=== PATIENT | female | born 1940 | race Caucasian/White ===

== ENCOUNTER 2016-12-02 08:52 | Inpatient (IN) | payer OTHER, MEDICARE ==
[2016-12-02] VITALS (12 sets, daily range): BP systolic 124–165; BP diastolic 59–72; PULSE 66–94; RESP 18–27; TEMP 98.4–98.7; O2SAT 93–97
[~2016-12-02] VITALS: Ht 152.4 cm; Wt 71.1 kg
[~2016-12-02 08:52] MED LIST: BIOT5000 PO; CITRTAB16 PO; EYECAP PO; FERR140T OR; FISH1000 PO; HYZA100T6 PO; LEVA750T9 PO; LUTE20CA PO; POTA-243 PO; TAB-TAB PO; VITA20003 OR
[2016-12-02] MEDS ORDERED: GADODIAMIDE PF 287 MG/ML 5 ML VIAL (for RAD MRI) IV PUSH ONE (08:53)
--- NOTE | 2016-12-02 09:02 | PD ---
HPI Chief Complaint: Neuro Symptoms/ Deficits Time Seen by Provider: 08:55 Travel History International Travel<30 days: No Contact w/Intl Traveler<30days: No Traveled to known affect area: No History of Present Illness HPI Patient is a 76-year-old female presents emergency Department with headache and difficulty finding words since yesterday. She is accompanied by her daughter and . Patient is having trouble finding small words like "baby" in baby aspirin and "worse." Daughter states that she usually suffers from migraines but she was able to tell her that this was "something worse". No focalized weakness. No fevers no abdominal pain. She states symptoms are getting worse this morning. She is also slow to respond to questions which daughter states is something new for her. Almost as if she was hard of hearing but she has not had any hard of hearing issues in the past. PFSH Past Medical History Arthritis: Yes Cancer: No Cardiovascular Problems: No Diabetes: No Diminished Hearing: No Endocrine: No Genitourinary: No Hepatitis: No Hiatal Hernia: No Hypertension: Yes Immune Disorder: No Musculoskeletal: Yes (KNEES AND BACK ARTHRITIS) Neurologic: No Psychiatric: No Reproductive: No Respiratory: No Thyroid Disease: No Menopausal: Yes Past Surgical History Abdominal Surgery: No AICD: No Body Medical Devices: NA Cardiac Surgery: No Ear Surgery: No Endocrine Surgery: No Eye Surgery: No Genitourinary Surgery: No Gynecologic Surgery: Yes (ECTOPIC ) Joint Replacement: Yes (R KNEE) Oral Surgery: No Pacemaker: No Thoracic Surgery: No Other Surgery: Yes Social History Alcohol Use: No Tobacco Use: No (quit 25 years ago) Substance Use: No Allergies-Medications (Allergen,Severity, Reaction): Coded Allergies: No Known Allergies (Unverified , 12/02/16) Reported Meds & Prescriptions Reported Meds & Active Scripts Active Reported Potassium Chloride ER (Potassium Chloride) 10 Meq Cap 10 Meq PO DAILY Losartan-Hydrochlorothiazide 100-25 Mg Tab 1 Tab PO DAILY Review of Systems Except as stated in HPI: all other systems reviewed are Neg Physical Exam Narrative GENERAL: Well-developed well-nourished no obvious distress SKIN: Focused skin assessment warm/dry. HEAD: Atraumatic. Normocephalic. EYES: Pupils equal and round. No scleral icterus. No injection or drainage. ENT: No nasal bleeding or discharge. Mucous membranes pink and moist. NECK: Trachea midline. No JVD. CARDIOVASCULAR: Regular rate and rhythm. No murmur appreciated. RESPIRATORY: No accessory muscle use. Clear to auscultation. Breath sounds equal bilaterally. GASTROINTESTINAL: Abdomen soft, non-tender, nondistended. Hepatic and splenic margins not palpable. MUSCULOSKELETAL: No obvious deformities. No clubbing. No cyanosis. No edema. NEUROLOGICAL: Awake and alert and oriented, cranial nerves II through XII are grossly intact and nonfocal, no obvious visual field deficits by confrontation. Patient has 5 out of 5 strength in all 4 extremities, cerebellar testing negative. The patient's speech she is having difficulty finding small words but is able to hear it on a conversation the point where he can understand what she is trying to communicate. She is slow to respond to my questions however which daughter says is new for her. PSYCHIATRIC: Appropriate mood and affect; insight and judgment normal. Data Data Last Documented VS Vital Signs Date Time Temp Pulse Resp B/P (MAP) Pulse Ox O2 Delivery O2 Flow Rate FiO2 12/02/16 11:49 70 18 128/72 (90) 96 12/02/16 10:53 Room Air Orders Orders Ct Brain W/O Iv Contrast(Rout) (12/02/16 ) Electrocardiogram (12/02/16 09:01) Ckmb (Isoenzyme) Profile (12/02/16 09:01) Complete Blood Count With Diff (12/02/16 09:01) Comprehensive Metabolic Panel (12/02/16 09:01) Magnesium (Mg) (12/02/16 09:01) Prothrombin Time / Inr (Pt) (12/02/16 09:01) Act Partial Throm Time (Ptt) (12/02/16 09:01) Troponin I (12/02/16 09:01) Chest, Single Ap (12/02/16 09:01) Ecg Monitoring (12/02/16 09:01) Iv Access Insert/Monitor (12/02/16 09:01) Oximetry (12/02/16 09:01) Oxygen Administration (12/02/16 09:01) Sodium Chloride 0.9% Flush (Ns Flush) (12/02/16 09:15) Dexamethasone Inj (Decadron Inj) (12/02/16 09:45) Elevate Head Of Bed (12/02/16 09:48) Mri Brain W&W/O Contrast (12/02/16 ) CKMB (12/02/16 09:05) CKMB% (12/02/16 09:05) Elevate Head Of Bed (12/02/16 10:17) Osmolality,Serum (12/02/16 10:20) Osmolality, Urine (12/02/16 10:20) Sodium, Random Urine (12/02/16 10:20) Potassium, Random Urine (K) (12/02/16 10:20) Urinalysis - C+S If Indicated (12/02/16 10:20) Gadodiamide Pf Inj (Omniscan Pf Inj) (12/02/16 08:53) Admit Order (Ed Use Only) (12/02/16 ) Labs Laboratory Tests Test 12/02/16 09:05 12/02/16 10:35 White Blood Count 7.6 TH/MM3 Red Blood Count 4.63 MIL/MM3 Hemoglobin 12.9 GM/DL Hematocrit 38.9 % Mean Corpuscular Volume 84.1 FL Mean Corpuscular Hemoglobin 27.9 PG Mean Corpuscular Hemoglobin Concent 33.2 % Red Cell Distribution Width 12.6 % Platelet Count 350 TH/MM3 Mean Platelet Volume 7.2 FL Neutrophils (%) (Auto) 71.9 % Lymphocytes (%) (Auto) 20.8 % Monocytes (%) (Auto) 5.2 % Eosinophils (%) (Auto) 0.6 % Basophils (%) (Auto) 1.5 % Neutrophils # (Auto) 5.5 TH/MM3 Lymphocytes # (Auto) 1.6 TH/MM3 Monocytes # (Auto) 0.4 TH/MM3 Eosinophils # (Auto) 0.0 TH/MM3 Basophils # (Auto) 0.1 TH/MM3 CBC Comment AUTO DIFF Differential Comment AUTO DIFF CONFIRMED Platelet Estimate NORMAL Platelet Morphology Comment NORMAL Prothrombin Time 10.6 SEC Prothromb Time International Ratio 1.0 RATIO Activated Partial Thromboplast Time 28.6 SEC Blood Urea Nitrogen 10 MG/DL Creatinine 0.98 MG/DL Random Glucose 113 MG/DL Total Protein 7.9 GM/DL Albumin 3.7 GM/DL Calcium Level 9.1 MG/DL Magnesium Level 1.7 MG/DL Alkaline Phosphatase 102 U/L Aspartate Amino Transf (AST/SGOT) 26 U/L Alanine Aminotransferase (ALT/SGPT) 27 U/L Total Bilirubin 1.2 MG/DL Sodium Level 122 MEQ/L Potassium Level 3.7 MEQ/L Chloride Level 87 MEQ/L Carbon Dioxide Level 23.5 MEQ/L Anion Gap 12 MEQ/L Estimat Glomerular Filtration Rate 55 ML/MIN Serum Osmolality 251 MOSM/KG Total Creatine Kinase 222 U/L Creatine Kinase MB 2.6 NG/ML Creatine Kinase MB % 1.2 % Troponin I LESS THAN 0.02 NG/ML Urine Color YELLOW Urine Turbidity CLEAR Urine pH 6.0 Urine Specific Gilliam 1.015 Urine Protein NEG mg/dL Urine Glucose (UA) NEG mg/dL Urine Ketones 15 mg/dL Urine Occult Blood SMALL Urine Nitrite NEG Urine Bilirubin NEG Urine Leukocyte Esterase NEG Urine RBC 0-3 /hpf Urine WBC 0-2 /hpf Urine Squamous Epithelial Cells 0-5 /hpf Urine Bacteria OCC /hpf Urine Mucus FEW /lpf Urine Oval Fat Bodies Microscopic Urinalysis Comment CULT NOT INDICATED Urine Osmolality 472 MOSM/KG Urine Random Sodium 68 MEQ/L Urine Random Potassium 54 MEQ/L [facility] Medical Decision Making Medical Screen Exam Complete: Yes Emergency Medical Condition: Yes Interpretation(s) EKG shows normal sinus rhythm with a normal axis and normal R-wave progression. TX interval at the upper limit of normal 205, otherwise intervals within normal limits. No concerning ST segment changes. This is a borderline EKG. Differential Diagnosis intracranial hemorrhage, cerebral edema, brain mass, ischemic stroke. Narrative Course Patient arrives to the emergency department with symptoms since last night. There is no indication for stroke alert and certainly will not be an indication for TPA. Working closely with Dr. 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 This is does have some cerebral edema with a [id number] shift of approximately 6 mm. He recommends an MRI. He was at this point the patient was discussed with Dr. Queta Ovalle through OR nurse and he agrees that MRI is of utmost importance. Patient was given Decadron 10 mg IV. Her labs reviewed and was notable for a sodium of 122, creatinine is 0.98, troponin negative, glucose 113. CBC shows normal platelet count, normal white blood cells. Given her hyponatremia the patient had urine electrolytes sent as well as serum and urine osmolality. These have not resulted as of yet. Patient remained nothing by mouth while in the emergency department. Patient underwent MRI scanning which appears to confirm CAT scan imaging. Last 24 hours Impressions Chest X-Ray 12/02/16 0901 Signed Impressions: Service Date/Time: Friday, December 02, 2016 09:15 - CONCLUSION: No acute disease. MD MICHAELLE LinaresR Head CT 12/02/16 0000 Signed Impressions: Service Date/Time: Friday, December 02, 2016 09:18 - CONCLUSION: Abnormal left hemisphere as described above. MRI is suggested. MD ODILIA Linares Brain MRI 12/02/16 0000 Signed Impressions: Service Date/Time: Friday, December 02, 2016 11:22 - CONCLUSION: Abnormal left ventricle with subtle generalized edema and prominent occipital horn. The occipital lobe is nonexistent on the left. This ventricle may be encysted or trapped. The signal characteristics of the CSF or identical across the ventricular system. I don't see anything else to account for the subtle edema in the left hemisphere. Mendez Dickerson MD FACR At this point without saying a mass causing the edema the patient was rediscussed with Dr. Jean-Paul Ovalle and he agrees the patient should be transferred to the [facility] hospital for consideration of surgical options. This was discussed with the patient and family and they are agreeable. At the discussion point the patient is having significant continuation of her expressive and receptive aphasia. It perhaps is subtly worse. Patient was discussed briefly with Dr. Reyes regarding the patient's sodium and at this point will hold off pending the results of her electrolyte results and monitoring of her neurologic status. Ultimately the patient was discussed with Dr. parmar the money for admission and he is agreeable. Patient will be transferred to [facility]. At this point we'll transfer her emergently for consideration of surgical options. Critical Care Narrative Aggregate critical care time was 35 minutes. Time to perform other separately billable procedures was not included in the critical care time. My time did not include minutes spent treating any other patients simultaneously or on activities that did not directly contribute to the patient's treatment. The services I provided to this patient were to treat and/or prevent clinically significant deterioration that could result in: , Disability, organ failure. I provided critical care services requiring my management, as noted below: Chart data review, documentation time, medication orders and management, vital sign assessments/reviewing monitor data, ordering and reviewing lab tests, ordering and interpreting/reviewing x-rays and diagnostic studies, care of the patient and discussion of the patient with the admitting physicians. Diagnosis Primary Impression: Cerebral edema Additional Impressions: Brain cyst Hyponatremia Expressive aphasia Receptive aphasia Admitting Information Admitting Physician Requests: Admit Condition: Preston Pedroza MD Dec 02, 2016 09:02
[2016-12-02] MEDS ORDERED: LOSA100T2 PO (09:06)
[2016-12-02] MEDS ORDERED: POTA10CA PO (09:06)
[2016-12-02] MEDS ORDERED: SODIUM CHLORIDE 0.9% FLUSH 10 ML FLUSH IVF PRN (09:15)
[2016-12-02 09:20] LABS: AUTOMATED NEUTROPHIL # 5.5 TH/MM3 (1.8-7.7); BASOPHIL # 0.1 TH/MM3 (0-0.2); BASOPHIL % 1.5 % (0.0-2.0); EOSINOPHIL % 0.6 % (0.0-4.0); HEMATOCRIT 38.9 % (35.0-46.0); LYMPH % 20.8 % (9.0-44.0); LYMPHOCYTE # 1.6 TH/MM3 (1.0-4.8); MEAN CELL VOLUME 84.1 FL (80.0-100.0); MEAN CORPUSCULAR HEMOGLOBIN 27.9 PG (27.0-34.0); MEAN CORPUSCULAR HGB CONC 33.2 % (32.0-36.0); MONO % 5.2 % (0.0-8.0); NEUT % 71.9 % (16.0-70.0); PLATELET COUNT 350 TH/MM3 (150-450); RED BLOOD COUNT 4.63 MIL/MM3 (4.00-5.30); RED CELL DISTRIBUTION WIDTH 12.6 % (11.6-17.2); WHITE BLOOD COUNT 7.6 TH/MM3 (4.0-11.0)
[2016-12-02 09:25] LABS: HEMO FLAGS AUTO DIFF
--- NOTE | 2016-12-02 09:37 | RADRPT ---
EXAM DATE/TIME: 12/02/2016 09:18 [facility] COMPARISON: No previous studies available for comparison. INDICATIONS : Frontal headache with speaking difficulty since yesterday. RADIATION DOSE: 62.00 CTDIvol (mGy) MEDICAL HISTORY : Hypertension. SURGICAL HISTORY : None. ENCOUNTER: Initial ACUITY: 2 days PAIN SCALE: 4/10 LOCATION: frontal TECHNIQUE: Multiple contiguous axial images were obtained of the head. Using automated exposure control and adj ustment of the mA and/or kV according to patient size, radiation dose was kept as low as reasonably a chievable to obtain optimal diagnostic quality images. DICOM format image data is available electro nically for review and comparison. FINDINGS: The study is abnormal. There is large dilated occipital horn on the left. This may be trapped becau se there is minimal mass effect in the left hemisphere. The right hemisphere is unremarkable. The p osterior fossa is normal. There is no parenchymal hemorrhage CONCLUSION: Abnormal left hemisphere as described above. MRI is suggested. Mendez Dickerson MD FACR on December 02, 2016 at 9:33 Board Certified Radiologist. This report was verified electronically.
[2016-12-02 09:40] LABS: APTT (PATIENT) 28.6 SEC (24.3-30.1); PROTHROMBIN TIME - PATIENT 10.6 SEC (9.8-11.6)
--- NOTE | 2016-12-02 09:40 | RADRPT ---
EXAM DATE/TIME: 12/02/2016 09:15 [facility] COMPARISON: CHEST SINGLE AP, December 07, 2013, 23:16. INDICATIONS : Chest Pain MEDICAL HISTORY : Hypertension. SURGICAL HISTORY : None. ENCOUNTER: Initial ACUITY: 2 days PAIN SCORE: 0/10 LOCATION: Bilateral chest FINDINGS: A single view of the chest demonstrates the lungs to be symmetrically aerated without evidence of mas s, infiltrate or effusion. The cardiomediastinal contours are unremarkable. Osseous structures are intact. CONCLUSION: No acute disease. Mendez Dickerson MD FACR on December 02, 2016 at 9:37 Board Certified Radiologist. This report was verified electronically.
[2016-12-02] MEDS ORDERED: DEXAMETHASONE SOD PHOS 20 MG/5 ML VIAL IV PUSH ONE (09:45)
[2016-12-02 09:55] LABS: BICARBONATE 23.5 MEQ/L (21.0-32.0); MAGNESIUM 1.7 MG/DL (1.5-2.5)
[2016-12-02 09:58] LABS: ALT (GPT) 27 U/L (10-53); AST (GOT) 26 U/L (15-37); GLOMERULAR FILTRATION RATE 55 ML/MIN (>89)
[2016-12-02 09:59] LABS: TOTAL BILIRUBIN ADULT 1.2 MG/DL (0.2-1.0)
[2016-12-02 10:00] LABS: PLATELET ESTIMATE SMEAR NORMAL (NORMAL); PLATELET MORPHOLOGY NORMAL (NORMAL); SCAN/DIFF AUTO DIFF CONFIRMED
[2016-12-02 10:14] LABS: ALKALINE PHOSPHATASE 102 U/L (45-117); ANION GAP 12 MEQ/L (5-15); BLOOD UREA NITROGEN 10 MG/DL (7-18); CHLORIDE 87 MEQ/L (98-107); CREATINE KINASE 222 U/L (26-192); POTASSIUM 3.7 MEQ/L (3.5-5.1)
[2016-12-02 10:19] LABS: SODIUM (NA) 122 MEQ/L (136-145)
[2016-12-02 10:41] LABS: CKMB 2.6 NG/ML (0.5-3.6)
[2016-12-02 10:52] LABS: BLOOD, URINE SMALL (NEG); GLUCOSE,URINE NEG (NEG); KETONE, URINE 15 mg/dL (NEG); NITRITE,URINE NEG (NEG)
[2016-12-02 11:03] LABS: BACTERIA, URINE OCC /hpf; COMMENT (UR) CULT NOT INDICATED; CULTURE IF INDICATED CULT NOT INDICATED; MUCUS URINE FEW /lpf (OCC); RBC, URINE 0-3 /hpf (0-3); SQUAMOUS EPITHELIAL CELL URINE 0-5 /hpf (0-5); URINE COLOR YELLOW (YELLW/STRAW); WBC, URINE 0-2 /hpf (0-5)
--- NOTE | 2016-12-02 12:28 | RADRPT ---
EXAM DATE/TIME: 12/02/2016 11:22 [facility] COMPARISON: No previous studies available for comparison. INDICATIONS : Tumor. Frontal headache with speaking difficulty since yesterday. CONTRAST: 13 cc Omniscan (gadodiamide) IV MEDICAL HISTORY : None. SURGICAL HISTORY : Knee sx. ENCOUNTER: Initial ACUITY: 2 day PAIN SCORE: 3/10 LOCATION: Bilateral cranial TECHNIQUE: Multiplanar, multisequence MRI of the brain was performed both prior to and following the administrat ion of paramagnetic contrast. FINDINGS: There is mild generalized edema in the left hemisphere. The occipital lobe on the left is all be non existent. Scattered white matter changes are noted There is minimal left to right shift on the older of the 6-7 mm. There is no restricted diffusion. There is no parenchymal hemorrhage. The right hemisphere is unremarkable There is no abnormal contrast enhancement. The orbits and sinuses are unremarkable. CONCLUSION: Abnormal left ventricle with subtle generalized edema and prominent occipital horn. The occipital lo be is nonexistent on the left. This ventricle may be encysted or trapped. The signal characteristic s of the CSF or identical across the ventricular system. I don't see anything else to account for the subtle edema in the left hemisphere. Mendez Dickerson MD FACR on December 02, 2016 at 12:19 Board Certified Radiologist. This report was verified electronically.
[2016-12-02] MEDS ORDERED: ACETAMINOPHEN 325 MG TAB PO PRN ×2 (14:30→16:45)
[2016-12-02] MEDS ORDERED: CHLORHEXIDINE GLUCONATE 2 % 1 PACK (2 CLOTHS) TOP PRN (14:30)
[2016-12-02] MEDS ORDERED: ONDANSETRON HCL 4 MG/2 ML VIAL IV PRN (14:30)
[2016-12-02] MEDS ORDERED: SODIUM CHLORIDE 0.9% FLUSH 10 ML FLUSH IV FLUSH PRN ×2 (14:30→16:45)
[2016-12-02] MEDS ORDERED: LACTULOSE SYRUP 20 GM/30 ML CUP PO PRN (14:30)
[2016-12-02] MEDS ORDERED: MORPHINE SULFATE 4 MG/ML INJ IV PRN (14:30)
[2016-12-02] MEDS ORDERED: BISACODYL 10 MG SUPP RECTAL PRN (14:30)
[2016-12-02] MEDS ORDERED: MISCELLANEOUS NURSING INFORMATION XX SCH (14:30)
[2016-12-02] MEDS ORDERED: RESP: ALBUTEROL 2.5 MG/IPRATROPIUM 0.5 MG NEB (PRN) INH (14:30)
[2016-12-02] MEDS ORDERED: MAGNESIUM HYDROXIDE SUSP 30 ML CUP PO PRN (14:30)
[2016-12-02] MEDS ORDERED: SENNOSIDES 8.6 MG TAB PO PRN (14:30)
--- NOTE | 2016-12-02 14:32 | EKG ---
Date Performed: 12/02/2016 Time Performed: 09:08:04 PTAGE: 76 years EKG: Sinus rhythm NORMAL ECG Compared to prior tracing no significant change PREVIOUS TRACING : 12/07/2013 23.10 DOCTOR: Grzegorz Akbar Interpretating Date/Time 12/02/2016 14:27:07
[2016-12-02] MEDS: DEXAMETHASONE SOD PHOS 4 MG/ML VIAL IV PUSH SCH ×2 (15:37→21:01)
[2016-12-02] MEDS: NS + KCL 20 MEQ INJ 1,000 ML IV SCH (15:37)
--- NOTE | 2016-12-02 15:41 | HHI.HP ---
HPI Service Critical Care Medicine Primary Care Physician Unknown Admission Diagnosis Cerebral Edema, Brain Cyst. Diagnosis: Travel History International Travel<30 Days: No Contact w/Intl Traveler <30 Da: No Traveled to Known Affected Are: No History of Present Illness History of Present Illness HPI 76-year-old female who was brought to the ER with a history of headache and difficulty with finding words with started on 12/01 that is yesterday. On evaluation in the ER she was noted to have word finding difficulty. She underwent a head CT which revealed enlarged left occipital horn of lateral ventricle. Neurosurgery was consulted by Dr. Daniels and Dr. Ovalle requested patient be transferred to [facility]. Patient was given Decadron 10 mg IV at [place] [facility]. She also noted to be hyponatremic with sodium 122. I evaluated the patient immediately on her arrival to [facility]. At that time she was laying in bed in no acute distress. She continued to have difficulties with her speech and appeared to have expressive aphasia. She did say that she had a headache previously. Denied any nausea vomiting or visual disturbance. Denied any fever or chills. Denied any shortness of breath or abdominal pain. History PFSH Past Medical History Arthritis: Yes Cancer: No Cardiovascular Problems: No Diabetes: No Diminished Hearing: No Endocrine: No Genitourinary: No Hepatitis: No Hiatal Hernia: No Hypertension: Yes Immune Disorder: No Musculoskeletal: Yes (KNEES AND BACK ARTHRITIS) Neurologic: No Psychiatric: No Reproductive: No Respiratory: No Thyroid Disease: No Menopausal: Yes Past Surgical History Abdominal Surgery: No AICD: No Body Medical Devices: NA Cardiac Surgery: No Ear Surgery: No Endocrine Surgery: No Eye Surgery: No Genitourinary Surgery: No Gynecologic Surgery: Yes (ECTOPIC ) Joint Replacement: Yes (R KNEE) Oral Surgery: No Pacemaker: No Thoracic Surgery: No Other Surgery: Yes Social History Alcohol Use: No Tobacco Use: No (quit 25 years ago) Substance Use: No Allergies-Medications Allergies-Medications (Allergen,Severity, Reaction): Coded Allergies: No Known Allergies (Unverified , 12/02/16) Reported Meds & Prescriptions Reported Meds & Active Scripts Active Reported Potassium Chloride ER (Potassium Chloride) 10 Meq Cap 10 Meq PO DAILY Losartan-Hydrochlorothiazide 100-25 Mg Tab 1 Tab PO DAILY ROS Review of Systems Except as stated in HPI: all other systems reviewed are Neg Review of Systems ROS As per history of present illness Past Family Social History Allergies: Coded Allergies: No Known Allergies (Unverified , 12/02/16) Physical Exam Vital Signs Vital Signs Date Time Temp Pulse Resp B/P (MAP) Pulse Ox O2 Delivery O2 Flow Rate FiO2 12/02/16 14:03 12/02/16 11:49 70 18 128/72 (90) 96 12/02/16 10:53 66 18 133/67 (89) 97 Room Air 12/02/16 09:54 67 20 138/65 (89) 97 12/02/16 09:08 96 12/02/16 08:59 77 20 165/70 (101) 93 Physical Exam Physical Exam Physical Exam Narrative GENERAL: Well-developed well-nourished no obvious distress SKIN: Focused skin assessment warm/dry. HEAD: Atraumatic. Normocephalic. EYES: Pupils equal and round. No scleral icterus. No injection or drainage. ENT: No nasal bleeding or discharge. Mucous membranes pink and moist. NECK: Trachea midline. No JVD. CARDIOVASCULAR: Regular rate and rhythm. No murmur appreciated. RESPIRATORY: No accessory muscle use. Clear to auscultation. Breath sounds equal bilaterally. GASTROINTESTINAL: Abdomen soft, non-tender, nondistended. Hepatic and splenic margins not palpable. MUSCULOSKELETAL: No obvious deformities. No clubbing. No cyanosis. No edema. NEUROLOGICAL: Awake and alert and oriented, patient appeared to have a visual field cut my confrontation test on evaluating the right eye temporal and inferior quadrants. No facial weakness, tongue movements appeared normal. normal gag response. Patient has 5 out of 5 strength in all 4 extremities, cerebellar testing negative. The patient's speech she is having difficulty finding small words but is able to hear it on a conversation the point where he can understand what she is trying to communicate. Pupils 3 mm bilaterally reacting actively to light. PSYCHIATRIC: Appropriate mood and affect; insight and judgment normal. Laboratory Laboratory Tests Test 12/02/16 09:05 12/02/16 10:35 White Blood Count 7.6 Red Blood Count 4.63 Hemoglobin 12.9 Hematocrit 38.9 Mean Corpuscular Volume 84.1 Mean Corpuscular Hemoglobin 27.9 Mean Corpuscular Hemoglobin Concent 33.2 Red Cell Distribution Width 12.6 Platelet Count 350 Mean Platelet Volume 7.2 Neutrophils (%) (Auto) 71.9 Lymphocytes (%) (Auto) 20.8 Monocytes (%) (Auto) 5.2 Eosinophils (%) (Auto) 0.6 Basophils (%) (Auto) 1.5 Neutrophils # (Auto) 5.5 Lymphocytes # (Auto) 1.6 Monocytes # (Auto) 0.4 Eosinophils # (Auto) 0.0 Basophils # (Auto) 0.1 CBC Comment AUTO DIFF Differential Comment AUTO DIFF CONFIRMED Platelet Estimate NORMAL Platelet Morphology Comment NORMAL Prothrombin Time 10.6 Prothromb Time International Ratio 1.0 Activated Partial Thromboplast Time 28.6 Blood Urea Nitrogen 10 Creatinine 0.98 Random Glucose 113 Total Protein 7.9 Albumin 3.7 Calcium Level 9.1 Magnesium Level 1.7 Alkaline Phosphatase 102 Aspartate Amino Transf (AST/SGOT) 26 Alanine Aminotransferase (ALT/SGPT) 27 Total Bilirubin 1.2 Sodium Level 122 Potassium Level 3.7 Chloride Level 87 Carbon Dioxide Level 23.5 Anion Gap 12 Estimat Glomerular Filtration Rate 55 Serum Osmolality 251 Total Creatine Kinase 222 Creatine Kinase MB 2.6 Creatine Kinase MB % 1.2 Troponin I LESS THAN 0.02 Urine Color YELLOW Urine Turbidity CLEAR Urine pH 6.0 Urine Specific [place] 1.015 Urine Protein NEG Urine Glucose (UA) NEG Urine Ketones 15 Urine Occult Blood SMALL Urine Nitrite NEG Urine Bilirubin NEG Urine Leukocyte Esterase NEG Urine RBC 0-3 Urine WBC 0-2 Urine Squamous Epithelial Cells 0-5 Urine Bacteria OCC Urine Mucus FEW Urine Oval Fat Bodies Microscopic Urinalysis Comment CULT NOT INDICATED Urine Osmolality 472 Urine Random Sodium 68 Urine Random Potassium 54 Result Diagram: 12/02/1690412/02/16904 Imaging Last Impressions Chest X-Ray 12/02/16900 Signed Impressions: Service Date/Time: Friday, December 02, 2016 09:15 - CONCLUSION: No acute disease. Mendez Dickerson MD FACR Head CT 12/02/16 0000 Signed Impressions: Service Date/Time: Friday, December 02, 2016 09:18 - CONCLUSION: Abnormal left hemisphere as described above. MRI is suggested. Mendez Dickerson MD FACR Brain MRI 12/02/16 0000 Signed Impressions: Service Date/Time: Friday, December 02, 2016 11:22 - CONCLUSION: Abnormal left ventricle with subtle generalized edema and prominent occipital horn. The occipital lobe is nonexistent on the left. This ventricle may be encysted or trapped. The signal characteristics of the CSF or identical across the ventricular system. I don't see anything else to account for the subtle edema in the left hemisphere. Mendez Dickerson MD FACR Caprini VTE Risk Assessment Caprini VTE Risk Assessment: No/Low Risk (score <= 1) VTE Pharm Contraindication: Intracranial lesions Caprini Risk Assessment Model Point Value = 1 Point Value = 2 Point Value = 3 Point Value = 5 Age 41-60 Minor surgery BMI > 25 kg/m2 Swollen legs Varicose veins or History of unexplained or recurrent spontaneous Oral contraceptives or hormone replacement Sepsis (< 1 month) Serious lung disease, including pneumonia (< 1 month) Abnormal pulmonary function Acute myocardial infarction Congestive heart failure (< 1 month) History of inflammatory bowel disease Medical patient at bed rest Age 61-74 Arthroscopic surgery Major open surgery (> 45 min) Laparoscopic surgery (> 45 min) Malignancy Confined to bed (> 72 hours) Immobilizing plaster cast Central venous access Age >= 75 History of VTE Family history of VTE Factor V Leiden Prothrombin [id number] Lupus anticoagulant Anticardiolipin antibodies Elevated serum homocysteine Heparin-induced thrombocytopenia Other congenital or acquired thrombophilia Stroke (< 1 month) Elective arthroplasty Hip, pelvis, or leg fracture Acute spinal cord injury (< 1 month) Prophylaxis Regimen Total Risk Factor Score Risk Level Prophylaxis Regimen 0-1 Low Early ambulation 2 Moderate Order ONE of the following: *Sequential Compression Device (SCD) *Heparin 5000 units SQ BID 3-4 Higher Order ONE of the following medications: *Heparin 5000 units SQ TID *Enoxaparin/Lovenox 40 mg SQ daily (WT < 150 kg, CrCl > 30 mL/min) *Enoxaparin/Lovenox 30 mg SQ daily (WT < 150 kg, CrCl > 10-29 mL/min) *Enoxaparin/Lovenox 30 mg SQ BID (WT < 150 kg, CrCl > 30 mL/min) AND/OR *Sequential Compression Device (SCD) 5 or more Highest Order ONE of the following medications: *Heparin 5000 units SQ TID (Preferred with Epidurals) *Enoxaparin/Lovenox 40 mg SQ daily (WT < 150 kg, CrCl > 30 mL/min) *Enoxaparin/Lovenox 30 mg SQ daily (WT < 150 kg, CrCl > 10-29 mL/min) *Enoxaparin/Lovenox 30 mg SQ BID (WT < 150 kg, CrCl > 30 mL/min) AND *Sequential Compression Device (SCD) Assessment and Plan Assessment and Plan 76-year-old female with: Enlarged occipital horn of left lateral ventricle with cerebral edema Speech disturbance 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 Neurosurgery consulted, Dr. Ovalle to evaluate patient to decide further definitive management of intracranial abnormality on CT head. May require [employer] shunt/ventriculostomy. Cardiovascular: Watch for hypotension, hypertension. Labetalol when necessary if needed to keep SBP less than 1 50 mmHg Pulmonary: Currently protecting airway. Supplemental O2 as needed. Bronchodilators when necessary. GI/liver: Nothing by mouth till evaluation by neurosurgery. If no surgical procedure planned defer advancing diet to neurosurgery. Renal/: IV hydration, strict intake output, monitor and replete electrolites, follow BUN/creatinine. Hyponatremia noted. Follow serial sodium. Starting normal saline ID: No indication for antibiotics at this time. Heme: Follow CBC Endocrine: Watch for hyperglycemia, SSI for glycemic control if needed. Prophylaxis: PPI/SCDs. No heparin or Lovenox till cleared by neurosurgery. Juan Chiang MD Dec 02, 2016 15:41
[2016-12-02] MEDS ORDERED: oxyCODONE/ACETAMINOPHEN 5 MG/325 MG TAB PO PRN (16:45)
[2016-12-02] MEDS ORDERED: RESP: ALBUTEROL 2.5 MG/3 ML NEB (PRN) NEB (16:45)
[2016-12-02] MEDS ORDERED: LORazepam 2 MG/ML VIAL IVP PRN (16:45)
[2016-12-02] MEDS: levETIRAcetam 500 MG TAB PO SCH (21:01)
[2016-12-02] MEDS: DOCUSATE SODIUM 50 MG/SENNA 8.6 MG TAB PO SCH (21:01)
--- NOTE | 2016-12-02 22:23 | MB ---
cc: NICHOLAS GORE M.D. DATE OF CONSULTATION 12/02/2016 REASON FOR CONSULTATION Left occipital lobe cyst. HISTORY OF PRESENT ILLNESS A 76-year-old female who presented to [facility] with complaints of expressive aphasia and confusion which started yesterday and has persisted. She also relates a mild frontal headache as well as nausea but no vomiting. She is unsure whether she has had any acute change in her vision but has noted some decline in the periphery in the right side which is chronic. Denies any numbness or paresthesias in the upper or lower extremities and no other particular symptoms that she cannot relate but again her speech is severely with expressive aphasia and cannot relate much of a history to me. Her granddaughter and are with her who have been relating some this history. 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 This cyst measures 7.6 cm in AP dimension, 5.8 cm in craniocaudal dimension and 3.8 cm in lateral dimension. There is mass effect in the surrounding left hemisphere. The cyst does not appear to communicate with the lateral ventricles as the ventricles are not dilated. No discrete enhancement is noted with contrast. The patient was transferred to the [facility] intensive care unit for further management. She is also hyponatremic with sodium of 122. The family relates that a year ago she had similar symptoms with the transient speech arrest and was informed that she may be dehydrated and with IV fluids her symptoms improved and she was sent home, although they do not recall having an imaging study of her brain done. They seem to relate to me that over 10 years ago she was informed that she had a cyst in the brain when she was in [place] but are unclear of this history. PAST MEDICAL HISTORY 1. Hypertension. 2. Right knee arthroplasty with chronic knee and back pain from osteoarthritis. MEDICATIONS 1. Losartan / Hydrochlorothiazide 100/25 daily. 2. Potassium chloride 10 mEq daily. ALLERGIES NO KNOWN DRUG ALLERGIES. SOCIAL HISTORY She is and her is here with her along with her granddaughter. She denies any alcohol use. Quit smoking 25-30 years ago. REVIEW OF SYSTEMS Positive for mild frontal headache. Positive for nausea but no vomiting. Positive for peripheral visual deficits in the right eye, right autumn field. Positive for expression of speech. Denies any numbness or paresthesias in the upper or lower extremities. Denies any weakness. Denies any incontinence. Denies any chest pain or shortness of breath. Denies any fevers or chills. Denies any recent weight gain or weight loss. Denies any history of easy bleeding or bruising. LABORATORY FINDINGS White blood cell count 7.6, hemoglobin 12.9, platelet count 350. PT 10.6, INR 1.0, PTT 28.6. Sodium 122, potassium 3.7, BUN 10, creatinine 0.98, glucose 113. PHYSICAL EXAMINATION VITAL SIGNS: Temperature 98.7, pulse is 72, respiratory rate 18, blood pressure 124/59, oxygen saturation 95% on room air. HEAD: Normocephalic, atraumatic. NECK: Supple. CHEST: Clear to auscultation bilaterally. CARDIOVASCULAR: Regular rate and rhythm, normal S1-S2. ABDOMEN: Soft, nontender. EXTREMITIES: No cyanosis or edema. NEUROLOGIC: She is awake, alert. Pupils are equal, reactive. She has a right homonymous hemianopsia. Face is symmetric. Tongue is midline. She moves all four extremities with good strength although does have a right pronator drift. Equivocal Babinski bilaterally. Appreciates light touch sensation bilaterally. She has [id number] expressive aphasia but is able to follow commands. She also has significant word-finding difficulty. IMPRESSION 1. 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 The cyst does not appear to communicate with the ventricle, although is involving the occipital horn and body of the lateral ventricle. 2. 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 3. Hypertension. PLAN The patient be monitored closely in the intensive care unit. Her head of bed will kept elevated at 30 degrees and q.1 neurological checks. Her hyponatremia has been corrected with normal saline and fluid restriction. I have recommended left occipital minimally invasive endoscopic cyst drainage and opening up the communication assist with lateral ventricle to allow internal drainage. In some cases this is not successful with persistent cyst or cyst reaccumulation. And in that case, I would recommend placement of cystoperitoneal shunt. Obviously the procedure will be undertaken once her hyponatremia has also been corrected and we will obtain stealth MRI scan for intraoperative navigation also the meantime. Gastrointestinal stress ulcer prophylaxis with Protonix as well as sequential compression devices for DVT prophylaxis will be undertaken. We will also consult speech therapy and physical therapy to prevent further deconditioning. I have discussed this at length the patient's family and they understand are in agreement. Also discussed with the child adolescent care Dr. Chiang. MD HUMPHREY Marquez/EDI /5:00 PM /9:57 PM
[2016-12-03] VITALS (14 sets, daily range): BP systolic 103–146; BP diastolic 53–75; PULSE 56–110; RESP 14–26; TEMP 97.7–99.3; O2SAT 94–100
[2016-12-03] MEDS: NS + KCL 20 MEQ INJ 1,000 ML IV SCH ×3 (02:04→20:28)
[2016-12-03] MEDS: DEXAMETHASONE SOD PHOS 4 MG/ML VIAL IV PUSH SCH ×4 (03:53→21:28)
[2016-12-03] MEDS: CHLORHEXIDINE GLUCONATE 2 % 1 PACK (2 CLOTHS) TOP SCH (04:00)
[2016-12-03 05:02] LABS: AUTOMATED NEUTROPHIL # 4.5 TH/MM3 (1.8-7.7); BASOPHIL % 0.8 % (0.0-2.0); HEMATOCRIT 38.3 % (35.0-46.0); HEMO FLAGS DIFF FINAL; LYMPH % 17.6 % (9.0-44.0); MEAN CELL VOLUME 82.8 FL (80.0-100.0); MEAN CORPUSCULAR HEMOGLOBIN 28.3 PG (27.0-34.0); MEAN CORPUSCULAR HGB CONC 34.1 % (32.0-36.0); MONO % 5.2 % (0.0-8.0); NEUT % 76.4 % (16.0-70.0); PLATELET COUNT 302 TH/MM3 (150-450); RED BLOOD COUNT 4.62 MIL/MM3 (4.00-5.30); RED CELL DISTRIBUTION WIDTH 13.6 % (11.6-17.2); WHITE BLOOD COUNT 5.9 TH/MM3 (4.0-11.0)
[2016-12-03 05:25] LABS: BICARBONATE 23.5 MEQ/L (21.0-32.0); POTASSIUM 4.2 MEQ/L (3.5-5.1)
[2016-12-03] MEDS: SODIUM CHLORIDE 0.9% FLUSH 10 ML FLUSH IV FLUSH SCH ×4 (08:28→21:29)
[2016-12-03] MEDS: DOCUSATE SODIUM 50 MG/SENNA 8.6 MG TAB PO SCH ×2 (08:29→21:29)
[2016-12-03] MEDS: PANTOPRAZOLE SOD 40 MG DELAYED RELEASE TAB PO SCH ×2 (08:29)
[2016-12-03] MEDS: levETIRAcetam 500 MG TAB PO SCH ×2 (08:29→21:29)
--- NOTE | 2016-12-03 09:25 | HHI.NSPN ---
(David Davison) History Chief Complaint: Mild expressive aphasia. (David Davison) Interval History A 76-year-old female who presented to [facility] Emergency Room with complaints of expressive aphasia and confusion which started yesterday and has persisted. She also relates a mild frontal headache as well as nausea but no vomiting. She is unsure whether she has had any acute change in her vision but has noted some decline in the periphery in the right side which is chronic. Denies any numbness or paresthesias in the upper or lower extremities and no other particular symptoms that she cannot relate but again her speech is severely with expressive aphasia and cannot relate much of a history to me. Her granddaughter and are with her who have been relating some this history. 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 This cyst measures 7.6 cm in AP dimension, 5.8 cm in craniocaudal dimension and 3.8 cm in lateral dimension. There is mass effect in the surrounding left hemisphere. The cyst does not appear to communicate with the lateral ventricles as the ventricles are not dilated. No discrete enhancement is noted with contrast. The patient was transferred to the [facility] intensive care unit for further management. She is also hyponatremic with sodium of 122. The family relates that a year ago she had similar symptoms with the transient speech arrest and was informed that she may be dehydrated and with IV fluids her symptoms improved and she was sent home, although they do not recall having an imaging study of her brain done. They seem to relate to me that over 10 years ago she was informed that she had a cyst in the brain when she was in [place] but are unclear of this history. 12/03/16: Pt denies headache. Has mild difficulty with expressive aphasia. Denies nausea or vomiting. No muscle weakness. (David Davison) Review of Systems General: Negative for: fever, chills, insomnia Respiratory: Negative for: shortness of breath, cough, sputum Cardiovascular: Negative for: chest pain Gastrointestinal: Negative for: nausea, vomitting, diarrhea, constipation ( David Davison) Exam Results Vital Signs Date Time Temp Pulse Resp B/P (MAP) Pulse Ox O2 Delivery O2 Flow Rate FiO2 12/03/16 08:00 97.7 63 20 132/75 (94) 95 12/03/16 07:00 Room Air 21 Intake and Output 12/03/16 12/03/16 12/04/16 08:00 16:00 00:00 Intake Total 2247 ml Output Total 1600 ml Balance 647 ml (David Davison) Physical Examination General: Resting comfortably sitting up in a chair. Resp: CTA bilaterally Heart: NSR no murmurs Abd: Soft positive bs Skin: No cyanosis or erythema Muscle: Moves all 4 extremities symmetrically. Neuro: Pt awake and alert. Pupils equal. Speech with mild expressive aphasia. Follows commands well. (David Davison) Lab, Micro, Other Results Last Impressions Chest X-Ray 12/02/16 0901 Signed Impressions: Service Date/Time: Friday, December 02, 2016 09:15 - CONCLUSION: No acute disease. Mendez Dickerson MD FACR Head CT 12/02/16 0000 Signed Impressions: Service Date/Time: Friday, December 02, 2016 09:18 - CONCLUSION: Abnormal left hemisphere as described above. MRI is suggested. Mendez Dickerson MD FACR Brain MRI 12/02/16 0000 Signed Impressions: Service Date/Time: Friday, December 02, 2016 11:22 - CONCLUSION: Abnormal left ventricle with subtle generalized edema and prominent occipital horn. The occipital lobe is nonexistent on the left. This ventricle may be encysted or trapped. The signal characteristics of the CSF or identical across the ventricular system. I don't see anything else to account for the subtle edema in the left hemisphere. Mendez Dickerson MD FACR Laboratory Tests Test 12/02/16 10:35 12/02/16 19:13 12/03/16 00:34 12/03/16 04:39 Urine Color YELLOW Urine Turbidity CLEAR Urine pH 6.0 Urine Specific [place] 1.015 Urine Protein NEG mg/dL Urine Glucose (UA) NEG mg/dL Urine Ketones 15 mg/dL Urine Occult Blood SMALL Urine Nitrite NEG Urine Bilirubin NEG Urine Leukocyte Esterase NEG Urine RBC 0-3 /hpf Urine WBC 0-2 /hpf Urine Squamous Epithelial Cells 0-5 /hpf Urine Bacteria OCC /hpf Urine Mucus FEW /lpf Urine Oval Fat Bodies Microscopic Urinalysis Comment CULT NOT INDICATED Urine Osmolality 472 MOSM/KG Urine Random Sodium 68 MEQ/L Urine Random Potassium 54 MEQ/L Sodium Level 125 MEQ/L 131 MEQ/L 133 MEQ/L White Blood Count 5.9 TH/MM3 Red Blood Count 4.62 MIL/MM3 Hemoglobin 13.0 GM/DL Hematocrit 38.3 % Mean Corpuscular Volume 82.8 FL Mean Corpuscular Hemoglobin 28.3 PG Mean Corpuscular Hemoglobin Concent 34.1 % Red Cell Distribution Width 13.6 % Platelet Count 302 TH/MM3 Mean Platelet Volume 6.7 FL Neutrophils (%) (Auto) 76.4 % Lymphocytes (%) (Auto) 17.6 % Monocytes (%) (Auto) 5.2 % Eosinophils (%) (Auto) 0.0 % Basophils (%) (Auto) 0.8 % Neutrophils # (Auto) 4.5 TH/MM3 Lymphocytes # (Auto) 1.0 TH/MM3 Monocytes # (Auto) 0.3 TH/MM3 Eosinophils # (Auto) 0.0 TH/MM3 Basophils # (Auto) 0.0 TH/MM3 CBC Comment DIFF FINAL Differential Comment Blood Urea Nitrogen 11 MG/DL Creatinine 0.76 MG/DL Random Glucose 132 MG/DL Calcium Level 8.7 MG/DL Potassium Level 4.2 MEQ/L Chloride Level 99 MEQ/L Carbon Dioxide Level 23.5 MEQ/L Anion Gap 10 MEQ/L Estimat Glomerular Filtration Rate 74 ML/MIN (David Davison) Medical Decision Making Impression and Plan A: 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 The cyst does not appear to communicate with the ventricle, although is involving the occipital horn and body of the lateral ventricle. 2. 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 3. Hypertension. PLAN Continue to monitor neuro exam MRI ordered for intraoperative navigation Continue with PT and Speech therapy. (David Davison) Attending Statement The exam, history, and the medical decision-making described in the above note were completed with the assistance of the mid-level provider. I reviewed and agree with the findings presented. I attest that I had a [id number] encounter with the patient on the same day, and personally performed and documented my assessment and findings in the medical record. Significant expressive aphasia persists although slightly improved since yesterday with the improvement of her hyponatremia. Discussed at length the procedure of a left occipital endoscopic cyst decompression medication of the stenosis to the lateral ventricle for internal drainage to reduce the risk for any recurrence. Also discussed the possibility of requiring a cystoperitoneal shunt if the cyst recurs or she develops hydrocephalus. All of her questions were answered and informed consent obtained. Plan on surgery for tomorrow. (Vishnu Ovalle MD) David Davison Dec 03, 2016 09:25 Vishnu Ovalle MD Dec 03, 2016 16:37
[2016-12-03] MEDS ORDERED: INFLUENZA VIRUS VACCINE (QUADRIVALENT) 0.5 ML SYR IM ONE (10:00)
--- NOTE | 2016-12-03 10:58 | HHI.PR ---
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 her present Mr. Terry Bryson. Objective Vital Signs Date Time Temp Pulse Resp B/P (MAP) Pulse Ox O2 Delivery O2 Flow Rate FiO2 12/03/16 10:00 85 12/03/16 08:00 97.7 63 20 132/75 (94) 95 12/03/16 07:00 96 Room Air 21 12/03/16 06:00 60 12/03/16 04:47 97 12/03/16 04:00 56 12/03/16 04:00 98.1 56 14 113/53 (73) 95 12/03/16 02:00 76 12/03/16 00:23 96 12/03/16 00:00 98.2 76 18 114/62 (79) 94 12/03/16 00:00 76 12/02/16 22:00 91 12/02/16 20:00 95 Room Air 12/02/16 20:00 94 12/02/16 20:00 98.4 94 20 128/60 (82) 95 12/02/16 19:50 96 12/02/16 18:00 86 12/02/16 17:00 97 21 12/02/16 16:00 98.7 72 27 124/59 (80) 96 12/02/16 16:00 72 12/02/16 15:00 74 12/02/16 15:00 95 Room Air 12/02/16 14:03 12/02/16 11:49 70 18 128/72 (90) 96 I/O 12/02/16 12/02/16 12/02/16 12/03/16 12/03/16 12/03/16 07:00 15:00 23:00 07:00 15:00 23:00 Intake Total 320 ml 2247 ml Output Total 1100 ml 1600 ml Balance -780 ml 647 ml Intake Oral 120 ml 360 ml IV Total 200 ml 1887 ml Output Urine Total 1100 ml 1600 ml # Bowel Movements 0 0 Result Diagram: 12/03/16 0439 12/03/16 0439 Imaging Last Impressions Chest X-Ray 12/02/16 0901 Signed Impressions: Service Date/Time: Friday, December 02, 2016 09:15 - CONCLUSION: No acute disease. Mendez Dickerson MD FACR Head CT 12/02/16 0000 Signed Impressions: Service Date/Time: Friday, December 02, 2016 09:18 - CONCLUSION: Abnormal left hemisphere as described above. MRI is suggested. Mendez Dickerson MD FACR Brain MRI 12/02/16 0000 Signed Impressions: Service Date/Time: Friday, December 02, 2016 11:22 - CONCLUSION: Abnormal left ventricle with subtle generalized edema and prominent occipital horn. The occipital lobe is nonexistent on the left. This ventricle may be encysted or trapped. The signal characteristics of the CSF or identical across the ventricular system. I don't see anything else to account for the subtle edema in the left hemisphere. Mendez Dickerson MD FACR Procedures None Other Results Laboratory Tests Test 12/02/16 09:05 12/02/16 10:35 12/03/16 04:39 Platelet Estimate NORMAL Platelet Morphology Comment NORMAL Prothrombin Time 10.6 SEC Prothromb Time International Ratio 1.0 RATIO Activated Partial Thromboplast Time 28.6 SEC Serum Osmolality 251 MOSM/KG Blood Urea Nitrogen 10 MG/DL 11 MG/DL Creatinine 0.98 MG/DL 0.76 MG/DL Random Glucose 113 MG/DL 132 MG/DL Total Protein 7.9 GM/DL Albumin 3.7 GM/DL Calcium Level 9.1 MG/DL 8.7 MG/DL Magnesium Level 1.7 MG/DL Alkaline Phosphatase 102 U/L Aspartate Amino Transf (AST/SGOT) 26 U/L Alanine Aminotransferase (ALT/SGPT) 27 U/L Total Bilirubin 1.2 MG/DL Sodium Level 122 MEQ/L 133 MEQ/L Potassium Level 3.7 MEQ/L 4.2 MEQ/L Chloride Level 87 MEQ/L 99 MEQ/L Carbon Dioxide Level 23.5 MEQ/L 23.5 MEQ/L Total Creatine Kinase 222 U/L Creatine Kinase MB 2.6 NG/ML Creatine Kinase MB % 1.2 % Troponin I LESS THAN 0.02 NG/ML Urine Color YELLOW Urine Turbidity CLEAR Urine pH 6.0 Urine Specific [place] 1.015 Urine Protein NEG mg/dL Urine Glucose (UA) NEG mg/dL Urine Ketones 15 mg/dL Urine Occult Blood SMALL Urine Nitrite NEG Urine Bilirubin NEG Urine Leukocyte Esterase NEG Urine RBC 0-3 /hpf Urine WBC 0-2 /hpf Urine Squamous Epithelial Cells 0-5 /hpf Urine Bacteria OCC /hpf Urine Mucus FEW /lpf Urine Oval Fat Bodies Microscopic Urinalysis Comment CULT NOT INDICATED Urine Osmolality 472 MOSM/KG Urine Random Sodium 68 MEQ/L Urine Random Potassium 54 MEQ/L White Blood Count 5.9 TH/MM3 Red Blood Count 4.62 MIL/MM3 Hemoglobin 13.0 GM/DL Hematocrit 38.3 % Mean Corpuscular Volume 82.8 FL Mean Corpuscular Hemoglobin 28.3 PG Mean Corpuscular Hemoglobin Concent 34.1 % Red Cell Distribution Width 13.6 % Platelet Count 302 TH/MM3 Mean Platelet Volume 6.7 FL Neutrophils (%) (Auto) 76.4 % Lymphocytes (%) (Auto) 17.6 % Monocytes (%) (Auto) 5.2 % Eosinophils (%) (Auto) 0.0 % Basophils (%) (Auto) 0.8 % Neutrophils # (Auto) 4.5 TH/MM3 Lymphocytes # (Auto) 1.0 TH/MM3 Monocytes # (Auto) 0.3 TH/MM3 Eosinophils # (Auto) 0.0 TH/MM3 Basophils # (Auto) 0.0 TH/MM3 CBC Comment DIFF FINAL Differential Comment Anion Gap 10 MEQ/L Estimat Glomerular Filtration Rate 74 ML/MIN Objective Remarks GENERAL: Well-developed well-nourished no obvious distress SKIN: Focused skin assessment warm/dry. HEAD: Atraumatic. Normocephalic. EYES: Pupils equal and round. No scleral icterus. No injection or drainage. ENT: No nasal bleeding or discharge. Mucous membranes pink and moist. NECK: Trachea midline. No JVD. CARDIOVASCULAR: Regular rate and rhythm. No murmur appreciated. RESPIRATORY: No accessory muscle use. Clear to auscultation. Breath sounds equal bilaterally. GASTROINTESTINAL: Abdomen soft, non-tender, nondistended. Hepatic and splenic margins not palpable. MUSCULOSKELETAL: No obvious deformities. No clubbing. No cyanosis. No edema. NEUROLOGICAL: Awake and alert and oriented, No focal deficits. PSYCHIATRIC: Appropriate mood and affect; insight and judgment normal. Medications and IVs Current Medications Medications (Trade) Dose Ordered Sig/Froilan Route Start Time Stop Time Status Last Admin Potassium Chloride/Sodium Chloride 1,000 ml @ 100 mls/hr Q10H IV 12/02/16 14:28 12/03/16 02:04 (NS Flush) 2 ml UNSCH PRN IV FLUSH 12/02/16 14:30 (NS Flush) 2 ml BID IV FLUSH 12/02/16 21:00 (Tylenol) 650 mg Q6H PRN PO 12/02/16 14:30 (Morphine Inj) 2 mg Q2H PRN IV 12/02/16 14:30 (Protonix) 40 mg DAILY PO 12/03/16 09:00 12/03/16 08:29 (Zofran Inj) 4 mg Q6H PRN IV 12/02/16 14:30 (Duoneb Neb) 1 ampule Q2HR NEB PRN INH 12/02/16 14:30 Miscellaneous Information 1 Q361D XX 12/02/16 14:30 (Chlorhexidine 2% Cloth) 3 pack Taper DAILY@04 TOP 12/03/16 04:00 11/29/17 03:59 (Chlorhexidine 2% Cloth) 3 pack UNSCH PRN TOP 12/02/16 14:30 (Tea-Colace) 1 tab BID PO 12/02/16 21:00 12/03/16 08:29 (Milk Of Magnesia Liq) 30 ml Q12H PRN PO 12/02/16 14:30 (Senokot) 17.2 mg Q12H PRN PO 12/02/16 14:30 (Dulcolax Supp) 10 mg DAILY PRN RECTAL 12/02/16 14:30 (Lactulose Liq) 30 ml DAILY PRN PO 12/02/16 14:30 (Decadron Inj) 4 mg Q6H IV PUSH 12/02/16 16:00 12/03/16 10:34 (NS Flush) 2 ml UNSCH PRN IV FLUSH 12/02/16 16:45 (NS Flush) 2 ml BID IV FLUSH 12/02/16 21:00 (Keppra) 500 mg Q12H PO 12/02/16 21:00 12/03/16 08:29 (Ativan Inj) 1 mg Q1H PRN IVP 12/02/16 16:45 (Protonix) 40 mg DAILY PO 12/03/16 09:00 (Percocet 5-325 Mg) 1 tab Q4H PRN PO 12/02/16 16:45 (Percocet 5-325 Mg) 2 tab Q4H PRN PO 12/02/16 16:45 (Trandate Inj) 10 mg Q1H PRN IV 12/02/16 16:45 (Catapres) 0.1 mg Q6H PRN PO 12/02/16 16:45 (Albuterol Neb) 2.5 mg Q4HR NEB PRN NEB 12/02/16 16:45 A/P Assessment and Plan 1. 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 her present Mr. Terry Bryson. 2. 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 No heparin or Lovenox till cleared by neurosurgery. Discussed with Patient with nurse Jing and with her Mr. Terry Bryson, all questions answered to the best of my abilities. Discharge Planning once cleared by Specialists. Ben Lockwood MD Dec 03, 2016 10:58
--- NOTE | 2016-12-03 13:11 | RADRPT ---
EXAM DATE/TIME: 12/03/2016 12:08 [facility] COMPARISON: MRI BRAIN W & W/O CONTRAST, December 02, 2016, 11:22. INDICATIONS : Hydrocephalus. Pre op. MEDICAL HISTORY : None. SURGICAL HISTORY : Total knee replacement, right. ENCOUNTER: Subsequent ACUITY: 2 day PAIN SCORE: 0/10 LOCATION: head. TECHNIQUE: An MRI brain stealth procedure was performed. The information will be used in the OR for localizatio n. FINDINGS: Limited images reveal a cystic structure occupying the majority of the left occipital lobe. This brett ures approximately 9 x 4 cm. There is associated edema within the left cerebral hemisphere most prono unced within the parietal and occipital lobes. CONCLUSION: Limited images as detailed above. Hadley Reyes Jr., MD on December 03, 2016 at 13:06 Board Certified Radiologist. This report was verified electronically.
[2016-12-04] VITALS (15 sets, daily range): BP systolic 116–157; BP diastolic 54–68; PULSE 57–72; RESP 13–21; TEMP 98.1–98.6; O2SAT 95–100
[2016-12-04] MEDS: DEXAMETHASONE SOD PHOS 4 MG/ML VIAL IV PUSH SCH ×4 (05:26→20:56)
[2016-12-04] MEDS: PANTOPRAZOLE SOD 40 MG DELAYED RELEASE TAB PO SCH ×2 (09:00)
[2016-12-04] MEDS: DOCUSATE SODIUM 50 MG/SENNA 8.6 MG TAB PO SCH ×2 (09:00→20:55)
[2016-12-04] MEDS: SODIUM CHLORIDE 0.9% FLUSH 10 ML FLUSH IV FLUSH SCH ×3 (09:00→20:56)
[2016-12-04] MEDS: levETIRAcetam 500 MG TAB PO SCH ×2 (10:06→20:55)
[2016-12-04] MEDS ORDERED: PROPOFOL 200 MG/20 ML AMP IV ONE (12:00)
[2016-12-04] MEDS ORDERED: PHENYLEPH/NS 1000 MCG/10 ML SYR IV ONE (12:00)
[2016-12-04] MEDS ORDERED: ePHEDrine/NS 25 MG/5 ML SYR IV ONE (12:00)
--- NOTE | 2016-12-04 12:22 | HHI.PR ---
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 her present Mr. Terry Bryson. 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 Objective Vital Signs Date Time Temp Pulse Resp B/P (MAP) Pulse Ox O2 Delivery O2 Flow Rate FiO2 12/04/16 07:00 97 Room Air 12/04/16 06:00 72 12/04/16 04:00 98.5 57 13 116/54 (74) 95 12/04/16 04:00 57 12/04/16 03:14 98 12/04/16 02:00 63 12/04/16 00:00 68 12/04/16 00:00 98.6 68 17 133/63 (86) 98 12/03/16 22:00 68 12/03/16 20:00 98.7 72 25 146/63 (90) 100 12/03/16 20:00 72 12/03/16 19:00 100 Room Air 21 12/03/16 18:00 75 12/03/16 16:00 98.2 73 18 119/62 (81) 97 12/03/16 16:00 76 12/03/16 14:00 77 I/O 12/03/16 12/03/16 12/03/16 12/04/16 12/04/16 12/04/16 06:59 14:59 22:59 06:59 14:59 22:59 Intake Total 2247 ml 1772 ml 1376 ml Output Total 1600 ml 750 ml 1800 ml Balance 647 ml 1022 ml -424 ml Intake Oral 360 ml 600 ml 360 ml IV Total 1887 ml 1172 ml 1016 ml Output Urine Total 1600 ml 750 ml 1800 ml # Bowel Movements 0 0 0 Result Diagram: 12/03/16 0439 12/04/16 0526 Imaging Last Impressions Brain MRI 12/03/16 0000 Signed Impressions: Service Date/Time: Saturday, December 03, 2016 12:08 - CONCLUSION: Limited images as detailed above. Hadley Reyes Jr., MD Chest X-Ray 12/02/16 0901 Signed Impressions: Service Date/Time: Friday, December 02, 2016 09:15 - CONCLUSION: No acute disease. Mendez Dickerson MD FACR Head CT 12/02/16 0000 Signed Impressions: Service Date/Time: Friday, December 02, 2016 09:18 - CONCLUSION: Abnormal left hemisphere as described above. MRI is suggested. 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 Other Results Laboratory Tests Test 12/02/16 09:05 12/02/16 10:35 12/03/16 04:39 12/04/16 05:26 Platelet Estimate NORMAL Platelet Morphology Comment NORMAL Prothrombin Time 10.6 SEC Prothromb Time International Ratio 1.0 RATIO Activated Partial Thromboplast Time 28.6 SEC Serum Osmolality 251 MOSM/KG Blood Urea Nitrogen 10 MG/DL 11 MG/DL Creatinine 0.98 MG/DL 0.76 MG/DL Random Glucose 113 MG/DL 132 MG/DL Total Protein 7.9 GM/DL Albumin 3.7 GM/DL Calcium Level 9.1 MG/DL 8.7 MG/DL Magnesium Level 1.7 MG/DL Alkaline Phosphatase 102 U/L Aspartate Amino Transf (AST/SGOT) 26 U/L Alanine Aminotransferase (ALT/SGPT) 27 U/L Total Bilirubin 1.2 MG/DL Sodium Level 122 MEQ/L 132 MEQ/L 136 MEQ/L Potassium Level 3.7 MEQ/L 4.2 MEQ/L Chloride Level 87 MEQ/L 99 MEQ/L Carbon Dioxide Level 23.5 MEQ/L 23.5 MEQ/L Total Creatine Kinase 222 U/L Creatine Kinase MB 2.6 NG/ML Creatine Kinase MB % 1.2 % Troponin I LESS THAN 0.02 NG/ML Urine Color YELLOW Urine Turbidity CLEAR Urine pH 6.0 Urine Specific [place] 1.015 Urine Protein NEG mg/dL Urine Glucose (UA) NEG mg/dL Urine Ketones 15 mg/dL Urine Occult Blood SMALL Urine Nitrite NEG Urine Bilirubin NEG Urine Leukocyte Esterase NEG Urine RBC 0-3 /hpf Urine WBC 0-2 /hpf Urine Squamous Epithelial Cells 0-5 /hpf Urine Bacteria OCC /hpf Urine Mucus FEW /lpf Urine Oval Fat Bodies Microscopic Urinalysis Comment CULT NOT INDICATED Urine Osmolality 472 MOSM/KG Urine Random Sodium 68 MEQ/L Urine Random Potassium 54 MEQ/L White Blood Count 5.9 TH/MM3 Red Blood Count 4.62 MIL/MM3 Hemoglobin 13.0 GM/DL Hematocrit 38.3 % Mean Corpuscular Volume 82.8 FL Mean Corpuscular Hemoglobin 28.3 PG Mean Corpuscular Hemoglobin Concent 34.1 % Red Cell Distribution Width 13.6 % Platelet Count 302 TH/MM3 Mean Platelet Volume 6.7 FL Neutrophils (%) (Auto) 76.4 % Lymphocytes (%) (Auto) 17.6 % Monocytes (%) (Auto) 5.2 % Eosinophils (%) (Auto) 0.0 % Basophils (%) (Auto) 0.8 % Neutrophils # (Auto) 4.5 TH/MM3 Lymphocytes # (Auto) 1.0 TH/MM3 Monocytes # (Auto) 0.3 TH/MM3 Eosinophils # (Auto) 0.0 TH/MM3 Basophils # (Auto) 0.0 TH/MM3 CBC Comment DIFF FINAL Differential Comment Anion Gap 10 MEQ/L Estimat Glomerular Filtration Rate 74 ML/MIN Objective Remarks GENERAL: Well-developed well-nourished no obvious distress SKIN: Focused skin assessment warm/dry. HEAD: Dressed. drainage in place. EYES: Pupils equal and round. No scleral icterus. No injection or drainage. ENT: No nasal bleeding or discharge. Mucous membranes pink and moist. NECK: Trachea midline. No JVD. CARDIOVASCULAR: Regular rate and rhythm. No murmur appreciated. RESPIRATORY: No accessory muscle use. Clear to auscultation. Breath sounds equal bilaterally. GASTROINTESTINAL: Abdomen soft, non-tender, nondistended. Hepatic and splenic margins not palpable. MUSCULOSKELETAL: No obvious deformities. No clubbing. No cyanosis. No edema. NEUROLOGICAL: Awake and alert and oriented, No focal deficits. PSYCHIATRIC: Appropriate mood and affect; insight and judgment normal. Medications and IVs Current Medications Medications (Trade) Dose Ordered Sig/Froilan Route Start Time Stop Time Status Last Admin Potassium Chloride/Sodium Chloride 1,000 ml @ 100 mls/hr Q10H IV 12/02/16 14:28 12/03/16 10:28 (NS Flush) 2 ml UNSCH PRN IV FLUSH 12/02/16 14:30 (NS Flush) 2 ml BID IV FLUSH 12/02/16 21:00 12/04/16 10:19 (Tylenol) 650 mg Q6H PRN PO 12/02/16 14:30 (Morphine Inj) 2 mg Q2H PRN IV 12/02/16 14:30 (Protonix) 40 mg DAILY PO 12/03/16 09:00 12/03/16 08:29 (Zofran Inj) 4 mg Q6H PRN IV 12/02/16 14:30 (Duoneb Neb) 1 ampule Q2HR NEB PRN INH 12/02/16 14:30 Miscellaneous Information 1 Q361D XX 12/02/16 14:30 (Chlorhexidine 2% Cloth) 3 pack Taper DAILY@04 TOP 12/03/16 04:00 11/29/17 03:59 (Chlorhexidine 2% Cloth) 3 pack UNSCH PRN TOP 12/02/16 14:30 (Tea-Colace) 1 tab BID PO 12/02/16 21:00 12/03/16 21:29 (Milk Of Magnesia Liq) 30 ml Q12H PRN PO 12/02/16 14:30 (Senokot) 17.2 mg Q12H PRN PO 12/02/16 14:30 (Dulcolax Supp) 10 mg DAILY PRN RECTAL 12/02/16 14:30 (Lactulose Liq) 30 ml DAILY PRN PO 12/02/16 14:30 (Decadron Inj) 4 mg Q6H IV PUSH 12/02/16 16:00 12/04/16 10:06 (NS Flush) 2 ml UNSCH PRN IV FLUSH 12/02/16 16:45 (NS Flush) 2 ml BID IV FLUSH 12/02/16 21:00 (Keppra) 500 mg Q12H PO 12/02/16 21:00 12/04/16 10:06 (Ativan Inj) 1 mg Q1H PRN IVP 12/02/16 16:45 (Protonix) 40 mg DAILY PO 12/03/16 09:00 (Percocet 5-325 Mg) 1 tab Q4H PRN PO 12/02/16 16:45 (Percocet 5-325 Mg) 2 tab Q4H PRN PO 12/02/16 16:45 (Trandate Inj) 10 mg Q1H PRN IV 12/02/16 16:45 (Catapres) 0.1 mg Q6H PRN PO 12/02/16 16:45 (Albuterol Neb) 2.5 mg Q4HR NEB PRN NEB 12/02/16 16:45 A/P Assessment and Plan 1. 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 stable improving condition. 2. Obesity strongly recommended diet and exercise as outpatient. Prophylaxis: PPI/SCDs. No heparin or Lovenox till cleared by neurosurgery. Discussed with Patient with nurse and relatives in the room, all questions answered to the best of my abilities. Discharge Planning once cleared by Specialists. Ben Lockwood MD Dec 04, 2016 12:22
[2016-12-04] MEDS ORDERED: MIDAZOLAM HCL 2 MG/2 ML VIAL ONE (13:25)
[2016-12-04] MEDS ORDERED: GELFOAM SIZE 100 ONE (13:38)
[2016-12-04] MEDS ORDERED: BUPIVACAINE/EPINEPHRINE 0.5% 50 ML VIAL ONE (13:39)
[2016-12-04] MEDS ORDERED: THROMBIN (TOPICAL) 5,000 UNIT VIAL ONE (13:40)
[2016-12-04] MEDS ORDERED: VANCOMYCIN HCL 1000 MG VIAL ONE (14:50)
[2016-12-04] MEDS ORDERED: CALCIUM GLUCONATE INJ 1 GM in SODIUM CHLORIDE 0.9% INJ 100 ML IV PRN (16:45)
[2016-12-04] MEDS ORDERED: MAGNESIUM HYDROXIDE SUSP 30 ML CUP PO PRN (16:45)
[2016-12-04] MEDS ORDERED: ALUMINUM/MAGNESIUM/SIMETH 30 ML CUP PO PRN (16:45)
[2016-12-04] MEDS ORDERED: MAGNESIUM SULFATE INJ 2 GM in SODIUM CHLORIDE 0.9% INJ 100 ML IV PRN (16:45)
[2016-12-04] MEDS ORDERED: SODIUM CHLORIDE 0.9% FLUSH 10 ML FLUSH IV FLUSH PRN (16:45)
[2016-12-04] MEDS ORDERED: POTASSIUM CHLOR 20 MEQ PREMIX 100 ML IV PRN (16:45)
--- NOTE | 2016-12-04 16:55 | PD.OP ---
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 endotracheal by Leesa Land Surgeon: Vishnu Ovalle M.D. Death Clearance Coordinator(s): Yasmin Toscano Operation and Findings: Following administration of general endotracheal anesthesia patient had invasive lines placed along with Doan catheter and sequential boots in place. She received a gram of vancomycin intravenously and was turned on the lateral position of the left side up on the beanbag with an axillary roll and the head secured in the 3 pin Mazariegos headrest. All pressure points were adequately padded. The Brain[facility] stereotactic navigation system was then registered with external landmarks with good accuracy confirmed. Left occipital area was then shaved and a prepped with ChloraPrep and sterilely draped. A 4 cm incision was then made in the scalp after infiltrating with 0.5% Marcaine with epinephrine solution after identifying the best trajectory with the navigation system into the ventricle and the occipital lobe cyst. With an automated manager of financial planning a bur hole was made in the underlying dura cauterized with bipolar cautery and opened in a cruciate format. The underlying viri was cauterized and also opened and the neuro endoscope then passed into the cyst with the navigation guidance. Clear CSF consisting fluid was expressed under moderate pressure. I could visualize that this was an entrapped cyst with no communication into the ventricle at the left trigone from the occipital horn into the lateral ventricle body. The cyst was perforated at the trigone with scissors and bipolar cautery through the endoscope. Then trapped occipital lobe cyst was opened into the body of the lateral ventricle and clear CSF inflow and outflow could be visualized. I also visualized the choroid plexus clearly at this point in the body of the ventricle. Portions of the cyst wall were sent for permanent pathology section. The area was then thoroughly irrigated and no active bleeding noted. Endoscope was then withdrawn and a bactiseal ventriculostomy placed into the occipital horn of the left lateral ventricle. The exit site was tunneled under the scapula trocar and secured with a 3-0 nylon tie and connected to a drainage bag. The galea was then approximated using 3-0 Vicryl interrupted sutures and final skin closure was with jessica. A sterile dressing was then applied in a [place] headrest removed which was turned in supine position and extubated and taken recovery room. There were no untoward complications and all sponge and needle count was correct at the end the procedure. Estimated blood loss was less than 10 cc. Vishnu Ovalle MD Dec 04, 2016 16:55
[2016-12-04] MEDS ORDERED: DO NOT ADM ANY ANTICOAGULANT DRUGS PRN (17:00)
[2016-12-04] MEDS ORDERED: niCARdipine INJ 25 MG in SODIUM CHLOR 0.9% 250 ML INJ 250 ML IV PRN (17:00)
[2016-12-04] MEDS ORDERED: *LABETALOL HCL 100 MG/20 ML VIAL PERIprocedural Use ONLY ONE (17:02)
[2016-12-04 17:23] LABS: HEMATOCRIT 34.6 % (35.0-46.0); MEAN CELL VOLUME 84.3 FL (80.0-100.0); MEAN CORPUSCULAR HEMOGLOBIN 28.6 PG (27.0-34.0); MEAN CORPUSCULAR HGB CONC 33.9 % (32.0-36.0); PLATELET COUNT 273 TH/MM3 (150-450); RED BLOOD COUNT 4.11 MIL/MM3 (4.00-5.30); RED CELL DISTRIBUTION WIDTH 14.1 % (11.6-17.2); REVIEW FLAG FINAL; WHITE BLOOD COUNT 7.7 TH/MM3 (4.0-11.0)
[2016-12-04 17:56] LABS: BICARBONATE 25.5 MEQ/L (21.0-32.0); POTASSIUM 4.1 MEQ/L (3.5-5.1)
[2016-12-04] MEDS ORDERED: SODIUM CHLORIDE 0.9% FLUSH 10 ML FLUSH IV FLUSH SCH (21:00)
[2016-12-04] MEDS: NS + KCL 20 MEQ INJ 1,000 ML IV SCH (23:19)
[2016-12-05] VITALS (9 sets, daily range): BP systolic 103–153; BP diastolic 44–67; PULSE 52–72; RESP 12–23; TEMP 97.6–98.8; O2SAT 96–100
[2016-12-05] MEDS: CHLORHEXIDINE GLUCONATE 2 % 1 PACK (2 CLOTHS) TOP SCH (03:50)
[2016-12-05] MEDS: DEXAMETHASONE SOD PHOS 4 MG/ML VIAL IV PUSH SCH ×4 (04:47→21:23)
[2016-12-05] MEDS: oxyCODONE/ACETAMINOPHEN 5 MG/325 MG TAB PO PRN ×2 (05:18→15:42)
[2016-12-05 05:55] LABS: BICARBONATE 20.9 MEQ/L (21.0-32.0); POTASSIUM 4.3 MEQ/L (3.5-5.1)
[2016-12-05] MEDS: PANTOPRAZOLE SOD 40 MG DELAYED RELEASE TAB PO SCH ×2 (08:47→09:15)
--- NOTE | 2016-12-05 08:47 | HHI.NSPN ---
(David Davison) History Chief Complaint: Mild expressive aphasia. (David Davison) Interval History A 76-year-old female who presented to [facility] Emergency Room with complaints of expressive aphasia and confusion which started yesterday and has persisted. She also relates a mild frontal headache as well as nausea but no vomiting. She is unsure whether she has had any acute change in her vision but has noted some decline in the periphery in the right side which is chronic. Denies any numbness or paresthesias in the upper or lower extremities and no other particular symptoms that she cannot relate but again her speech is severely with expressive aphasia and cannot relate much of a history to me. Her granddaughter and are with her who have been relating some this history. 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 This cyst measures 7.6 cm in AP dimension, 5.8 cm in craniocaudal dimension and 3.8 cm in lateral dimension. There is mass effect in the surrounding left hemisphere. The cyst does not appear to communicate with the lateral ventricles as the ventricles are not dilated. No discrete enhancement is noted with contrast. The patient was transferred to the [facility] intensive care unit for further management. She is also hyponatremic with sodium of 122. The family relates that a year ago she had similar symptoms with the transient speech arrest and was informed that she may be dehydrated and with IV fluids her symptoms improved and she was sent home, although they do not recall having an imaging study of her brain done. They seem to relate to me that over 10 years ago she was informed that she had a cyst in the brain when she was in [place] but are unclear of this history. 12/03/16: Pt denies headache. Has mild difficulty with expressive aphasia. Denies nausea or vomiting. No muscle weakness. 12/04/16: Pt s/p left occipital mac hole endoscopic cerebral/intraventricular cyst resection; ventriculostomy placement on 12/04/16. Pt has mild intermittent frontal headache. No nausea or vomiting. No paresthesias in face or extremities. (David Davison) Review of Systems General: Negative for: fever, chills, insomnia Respiratory: Negative for: shortness of breath, cough, sputum Cardiovascular: Negative for: chest pain Gastrointestinal: Negative for: nausea, vomitting, diarrhea, constipation ( David Davison) Exam Results Vital Signs Date Time Temp Pulse Resp B/P (MAP) Pulse Ox O2 Delivery O2 Flow Rate FiO2 12/05/16 06:11 14 12/05/16 04:14 99 Nasal Cannula 1.00 12/05/16 04:00 98.3 52 111/56 (74) 103/44 (63) 12/03/16 19:00 21 Intake and Output 12/05/16 12/05/16 12/06/16 08:00 16:00 00:00 Intake Total 1375 ml Output Total 1700 ml Balance -325 ml (David Davison) Physical Examination General: Resting comfortably in bed. Resp: CTA bilaterally Heart: NSR no murmurs Abd: Soft positive bs Skin: No cyanosis or erythema. Head bandage cabrera. Muscle: Moves all 4 extremities symmetrically. Neuro: Pt awake and alert. Pupils equal 3mm bilaterally reactive bilaterally. Speech with mild expressive aphasia. Follows commands well. Ventriculostomy drain in place draining. ICP 8. (David Davison) Lab, Micro, Other Results Last Impressions Brain MRI 12/03/16 0000 Signed Impressions: Service Date/Time: Saturday, December 03, 2016 12:08 - CONCLUSION: Limited images as detailed above. Hadley Reyes Jr., MD Chest X-Ray 12/02/16 0901 Signed Impressions: Service Date/Time: Friday, December 02, 2016 09:15 - CONCLUSION: No acute disease. Mendez Dickerson MD FACLashell Head CT 12/02/16 0000 Signed Impressions: Service Date/Time: Friday, December 02, 2016 09:18 - CONCLUSION: Abnormal left hemisphere as described above. MRI is suggested. Mendez Dickerson MD FACR Laboratory Tests Test 12/04/16 17:10 12/05/16 05:15 White Blood Count 7.7 TH/MM3 Red Blood Count 4.11 MIL/MM3 Hemoglobin 11.7 GM/DL Hematocrit 34.6 % Mean Corpuscular Volume 84.3 FL Mean Corpuscular Hemoglobin 28.6 PG Mean Corpuscular Hemoglobin Concent 33.9 % Red Cell Distribution Width 14.1 % Platelet Count 273 TH/MM3 Mean Platelet Volume 7.2 FL Blood Urea Nitrogen 14 MG/DL 11 MG/DL Creatinine 0.74 MG/DL 0.74 MG/DL Random Glucose 154 MG/DL 103 MG/DL Calcium Level 8.0 MG/DL 7.8 MG/DL Sodium Level 136 MEQ/L 138 MEQ/L Potassium Level 4.1 MEQ/L 4.3 MEQ/L Chloride Level 104 MEQ/L 107 MEQ/L Carbon Dioxide Level 25.5 MEQ/L 20.9 MEQ/L Anion Gap 7 MEQ/L 10 MEQ/L Estimat Glomerular Filtration Rate 76 ML/MIN 76 ML/MIN (David Davison) Medical Decision Making Impression and Plan A: 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 The cyst does not appear to communicate with the ventricle, although is involving the occipital horn and body of the lateral ventricle.s/p Left occipital mac hole endoscopic cerebral/intraventricular cyst resection; ventriculostomy placement on 12/05. 2. 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 3. Hypertension. PLAN Continue to monitor neuro exam Continue with ventriculostomy drain. Continue with PT and Speech therapy. (David Davison) Attending Statement The exam, history, and the medical decision-making described in the above note were completed with the assistance of the mid-level provider. I reviewed and agree with the findings presented. I attest that I had a [id number] encounter with the patient on the same day, and personally performed and documented my assessment and findings in the medical record. Relates a mild headache and improved speech. Sitting up in a chair and appears very comfortable. Ventriculostomy draining some fluid with low ICPs. Follow-up CT scan the head with the decreased a left occipital lobe cyst size and now communication noted between the ventricle at the cyst with postoperative pneumocephalus in the frontal horns. We'll discontinue Doan and IV fluids and raise ventriculostomy to 20 cm level. Continue with the observation and out of bed with physical therapy. (Vishnu Ovalle MD) David Davison Dec 05, 2016 08:47 Vishnu Ovalle MD Dec 05, 2016 14:15
[2016-12-05] MEDS: DOCUSATE SODIUM 50 MG/SENNA 8.6 MG TAB PO SCH ×2 (09:14→21:00)
[2016-12-05] MEDS: SODIUM CHLORIDE 0.9% FLUSH 10 ML FLUSH IV FLUSH SCH ×2 (09:15→21:23)
[2016-12-05] MEDS: levETIRAcetam 500 MG TAB PO SCH ×2 (09:15→21:23)
[2016-12-05 09:47] LABS: CALCIUM-PROTEIN CORRECTED 8.7 MG/DL (8.5-10.1)
--- NOTE | 2016-12-05 09:56 | RADRPT ---
EXAM DATE/TIME: 12/05/2016 08:11 [place] COMPARISON: MRI BRAIN W & W/O CONTRAST, December 02, 2016, 11:22. CT BRAIN W/O CONTRAST, December 02, 2016, 9:18. INDICATIONS : Post-operative evaluation. History of frontal headaches and difficulty speaking. RADIATION DOSE: 56.35 CTDIvol (mGy) MEDICAL HISTORY : Hypertension. Cardiovascular disease Migraines. SURGICAL HISTORY : Ventriculostomy. ENCOUNTER: Initial ACUITY: 1 day PAIN SCALE: 0/10 LOCATION: cranial TECHNIQUE: Multiple contiguous axial images were obtained of the head. Using automated exposure control and adj ustment of the mA and/or kV according to patient size, radiation dose was kept as low as reasonably a chievable to obtain optimal diagnostic quality images. DICOM format image data is available electro nically for review and comparison. FINDINGS: There are interval postsurgical changes with mac hole now noted in the left parietal bone and placem ent of shunt catheter with the tip in the large cystic collection in the region of the posterior horn of the left lateral ventricle. This is slightly smaller in size than on the prior study. Air is now noted in the anterior horns of both lateral ventricles. There is no acute hemorrhage, mass effect or midline shift. The posterior fossa and brainstem remain unremarkable. CONCLUSION: 1. Interval placement of shunt catheter with the tip in the large cystic collection in the region of the posterior horn of the left lateral ventricle. 2. Mild interval decrease in the size of the cystic collection. Eliel Garcia MD on December 05, 2016 at 9:48 Board Certified Radiologist. This report was verified electronically.
--- NOTE | 2016-12-05 13:41 | HHI.PR ---
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 her present Mr. Terry Bryson. 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 12/05: Seen in her bedroom in the presence of nurse stable improving condition no complaint, no nausea, vomit or diarrhea. complaint of constipation, will give Lactulose, also remove Doan Cath at this time. follow laboratory in am tomorrow. Objective Vital Signs Date Time Temp Pulse Resp B/P (MAP) Pulse Ox O2 Delivery O2 Flow Rate FiO2 12/05/16 09:18 98 21 12/05/16 08:00 97.6 53 12 128/63 (84) 100 12/05/16 07:00 Nasal Cannula 1.00 12/05/16 06:11 14 12/05/16 04:14 99 Nasal Cannula 1.00 12/05/16 04:00 98.3 52 21 111/56 (74) 100 103/44 (63) 12/05/16 00:00 98.6 65 16 127/60 (82) 100 12/04/16 23:08 20 12/04/16 21:05 99 Nasal Cannula 1.00 12/04/16 20:00 98.5 63 21 133/55 (81) 100 Automatic Cuff 12/04/16 19:30 Nasal Cannula 2.00 12/04/16 18:45 65 157/65 (95) 100 12/04/16 18:30 63 146/63 (90) 100 12/04/16 18:15 68 18 150/68 (95) 100 12/04/16 18:00 63 12/04/16 18:00 63 20 142/66 (91) 99 12/04/16 17:40 64 12/04/16 17:40 98.1 64 16 144/66 (92) 100 12/04/16 17:25 97.4 71 14 155/76 (102) 99 Nasal Cannula 2 12/04/16 17:15 68 17 153/71 (98) 99 Nasal Cannula 2 12/04/16 17:00 75 15 168/77 (107) 99 Nasal Cannula 2 12/04/16 16:53 97.4 99 16 158/73 (101) 99 Nasal Cannula 2 I/O 12/04/16 12/04/16 12/04/16 12/05/16 12/05/16 12/05/16 07:00 15:00 23:00 07:00 15:00 23:00 Intake Total 1376 ml 2070 ml 1375 ml Output Total 1800 ml 1800 ml 1700 ml Balance -424 ml 270 ml -325 ml Intake Oral 360 ml 70 ml 240 ml IV Total 1016 ml 1100 ml 1135 ml Other 900 ml Output Urine Total 1800 ml 1800 ml 1700 ml # Bowel Movements 0 0 Result Diagram: 12/04/16 1710 12/05/16 0515 Imaging Last Impressions Head CT 12/05/16 0800 Signed Impressions: Service Date/Time: November 08:11 - CONCLUSION: 1. Interval placement of shunt catheter with the tip in the large cystic collection in the region of the posterior horn of the left lateral ventricle. 2. Mild interval decrease in the size of the cystic collection. Eliel Garcia MD Brain MRI 12/03/16 0000 Signed Impressions: Service Date/Time: Saturday, December 03, 2016 12:08 - CONCLUSION: Limited images as detailed above. Hadley Reyes Jr., MD Chest X-Ray 12/02/16 0901 Signed Impressions: Service Date/Time: Friday, December 02, 2016 09:15 - CONCLUSION: No acute disease. 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 Other Results Laboratory Tests Test 12/02/16 09:05 12/02/16 10:35 12/03/16 04:39 12/04/16 17:10 Platelet Estimate NORMAL Platelet Morphology Comment NORMAL Prothrombin Time 10.6 SEC Prothromb Time International Ratio 1.0 RATIO Activated Partial Thromboplast Time 28.6 SEC Serum Osmolality 251 MOSM/KG Blood Urea Nitrogen 10 MG/DL Creatinine 0.98 MG/DL Random Glucose 113 MG/DL Total Protein 7.9 GM/DL Albumin 3.7 GM/DL Calcium Level 9.1 MG/DL Magnesium Level 1.7 MG/DL Alkaline Phosphatase 102 U/L Aspartate Amino Transf (AST/SGOT) 26 U/L Alanine Aminotransferase (ALT/SGPT) 27 U/L Total Bilirubin 1.2 MG/DL Sodium Level 122 MEQ/L Potassium Level 3.7 MEQ/L Chloride Level 87 MEQ/L Carbon Dioxide Level 23.5 MEQ/L Total Creatine Kinase 222 U/L Creatine Kinase MB 2.6 NG/ML Creatine Kinase MB % 1.2 % Troponin I LESS THAN 0.02 NG/ML Urine Color YELLOW Urine Turbidity CLEAR Urine pH 6.0 Urine Specific [place] 1.015 Urine Protein NEG mg/dL Urine Glucose (UA) NEG mg/dL Urine Ketones 15 mg/dL Urine Occult Blood SMALL Urine Nitrite NEG Urine Bilirubin NEG Urine Leukocyte Esterase NEG Urine RBC 0-3 /hpf Urine WBC 0-2 /hpf Urine Squamous Epithelial Cells 0-5 /hpf Urine Bacteria OCC /hpf Urine Mucus FEW /lpf Urine Oval Fat Bodies Microscopic Urinalysis Comment CULT NOT INDICATED Urine Osmolality 472 MOSM/KG Urine Random Sodium 68 MEQ/L Urine Random Potassium 54 MEQ/L Neutrophils (%) (Auto) 76.4 % Lymphocytes (%) (Auto) 17.6 % Monocytes (%) (Auto) 5.2 % Eosinophils (%) (Auto) 0.0 % Basophils (%) (Auto) 0.8 % Neutrophils # (Auto) 4.5 TH/MM3 Lymphocytes # (Auto) 1.0 TH/MM3 Monocytes # (Auto) 0.3 TH/MM3 Eosinophils # (Auto) 0.0 TH/MM3 Basophils # (Auto) 0.0 TH/MM3 CBC Comment DIFF FINAL Differential Comment White Blood Count 7.7 TH/MM3 Red Blood Count 4.11 MIL/MM3 Hemoglobin 11.7 GM/DL Hematocrit 34.6 % Mean Corpuscular Volume 84.3 FL Mean Corpuscular Hemoglobin 28.6 PG Mean Corpuscular Hemoglobin Concent 33.9 % Red Cell Distribution Width 14.1 % Platelet Count 273 TH/MM3 Mean Platelet Volume 7.2 FL Test 12/05/16 05:15 Blood Urea Nitrogen 11 MG/DL Creatinine 0.74 MG/DL Random Glucose 103 MG/DL Calcium Level 7.8 MG/DL Sodium Level 138 MEQ/L Potassium Level 4.3 MEQ/L Chloride Level 107 MEQ/L Carbon Dioxide Level 20.9 MEQ/L Anion Gap 10 MEQ/L Estimat Glomerular Filtration Rate 76 ML/MIN Protein Corrected Calcium 8.7 MG/DL Total Protein 5.6 GM/DL Objective Remarks GENERAL: Well-developed well-nourished no obvious distress SKIN: Focused skin assessment warm/dry. HEAD: Dressed. drainage in place. EYES: Pupils equal and round. No scleral icterus. No injection or drainage. ENT: No nasal bleeding or discharge. Mucous membranes pink and moist. NECK: Trachea midline. No JVD. CARDIOVASCULAR: Regular rate and rhythm. No murmur appreciated. RESPIRATORY: No accessory muscle use. Clear to auscultation. Breath sounds equal bilaterally. GASTROINTESTINAL: Abdomen soft, non-tender, nondistended. Hepatic and splenic margins not palpable. MUSCULOSKELETAL: No obvious deformities. No clubbing. No cyanosis. No edema. NEUROLOGICAL: Awake and alert and oriented, No focal deficits. PSYCHIATRIC: Appropriate mood and affect; insight and judgment normal. Medications and IVs Current Medications Medications (Trade) Dose Ordered Sig/Froilan Route Start Time Stop Time Status Last Admin Potassium Chloride/Sodium Chloride 1,000 ml @ 100 mls/hr Q10H IV 12/02/16 14:28 12/04/16 23:19 (Tylenol) 650 mg Q6H PRN PO 12/02/16 14:30 (Morphine Inj) 2 mg Q2H PRN IV 12/02/16 14:30 (Protonix) 40 mg DAILY PO 12/03/16 09:00 12/05/16 09:15 (Zofran Inj) 4 mg Q6H PRN IV 12/02/16 14:30 (Duoneb Neb) 1 ampule Q2HR NEB PRN INH 12/02/16 14:30 Miscellaneous Information 1 Q361D XX 12/02/16 14:30 (Chlorhexidine 2% Cloth) 3 pack Taper DAILY@04 TOP 12/03/16 04:00 11/29/17 03:59 12/05/16 03:50 (Chlorhexidine 2% Cloth) 3 pack UNSCH PRN TOP 12/02/16 14:30 (Tea-Colace) 1 tab BID PO 12/02/16 21:00 12/05/16 09:14 (Milk Of Magnesia Liq) 30 ml Q12H PRN PO 12/02/16 14:30 (Senokot) 17.2 mg Q12H PRN PO 12/02/16 14:30 (Dulcolax Supp) 10 mg DAILY PRN RECTAL 12/02/16 14:30 (Lactulose Liq) 30 ml DAILY PRN PO 12/02/16 14:30 (Decadron Inj) 4 mg Q6H IV PUSH 12/02/16 16:00 12/05/16 09:15 (NS Flush) 2 ml UNSCH PRN IV FLUSH 12/02/16 16:45 (NS Flush) 2 ml BID IV FLUSH 12/02/16 21:00 12/05/16 09:15 (Keppra) 500 mg Q12H PO 12/02/16 21:00 12/05/16 09:15 (Ativan Inj) 1 mg Q1H PRN IVP 12/02/16 16:45 (Protonix) 40 mg DAILY PO 12/03/16 09:00 (Percocet 5-325 Mg) 1 tab Q4H PRN PO 12/02/16 16:45 12/05/16 05:18 (Percocet 5-325 Mg) 2 tab Q4H PRN PO 12/02/16 16:45 12/04/16 22:14 (Trandate Inj) 10 mg Q1H PRN IV 12/02/16 16:45 (Catapres) 0.1 mg Q6H PRN PO 12/02/16 16:45 (Albuterol Neb) 2.5 mg Q4HR NEB PRN NEB 12/02/16 16:45 (Milk Of Magnesia Liq) 30 ml DAILY PRN PO 12/04/16 16:45 (Mag-Al Plus Susp Liq) 30 ml Q6H PRN PO 12/04/16 16:45 Calcium Gluconate 1 gm/Sodium Chloride 110 ml @ 110 mls/hr UNSCH PRN IV 12/04/16 16:45 Potassium Chloride 100 ml @ 50 mls/hr UNSCH PRN IV 12/04/16 16:45 Magnesium Sulfate 2 gm/Sodium Chloride 104 ml @ 100 mls/hr UNSCH PRN IV 12/04/16 16:45 Nicardipine HCl 25 mg/Sodium Chloride 260 ml @ 52 mls/hr TITRATE PRN IV 12/04/16 17:00 Miscellaneous Information ALL NURSING DEPARTME... UNSCH PRN .XX 12/04/16 17:00 12/05/16 16:59 A/P Assessment and Plan 1. Enlarged occipital horn of left lateral ventricle with cerebral edema, with Speech Disturbance, Neurosurgery following, may require P[employer] SUPERINTENDENT Shunt/Ventriculostomy, She underwent a head CT Large left Occipital Cyst with extension to the lateral ventricle and mass effect on the surrounding Occipital Lobe, the Cyst does not appear to communicate with the ventricle, although Ordered MRI of the Brain confirm the Left Occipital Cyst 9 x 4 cms 12/04: Status post Left Occipital mac hole endoscopic cerebral/intraventricular cyst resection, ventriculostomy placement, stereotactic intraoperative brain lab navigation by Doctor Vishnu Ovalle, 12/04/16. stable improving condition. 2. Obesity strongly recommended diet and exercise as outpatient. Prophylaxis: PPI/SCDs. No heparin or Lovenox till cleared by neurosurgery. Discussed with Patient with nurse and in the room., all questions answered to the best of my abilities. Remove Doan Cath Lactulose for Constipation. Discharge Planning once cleared by Specialists. Ben Lockwood MD Dec 05, 2016 13:41
[2016-12-05] MEDS ORDERED: LACTULOSE SYRUP 20 GM/30 ML CUP PO ONE (14:00)
[2016-12-05] MEDS: LABETALOL HCL 100 MG/20 ML VIAL IV PRN ×2 (22:06→23:40)
[2016-12-05] MEDS: cloNIDine HCL 0.1 MG TAB PO PRN (22:51)
[2016-12-06] VITALS (12 sets, daily range): BP systolic 110–161; BP diastolic 57–71; PULSE 54–69; RESP 14–22; TEMP 97.6–98.4; O2SAT 95–98
[2016-12-06] MEDS: LABETALOL HCL 100 MG/20 ML VIAL IV PRN ×2 (01:33→06:29)
[2016-12-06] MEDS: CHLORHEXIDINE GLUCONATE 2 % 1 PACK (2 CLOTHS) TOP SCH (04:30)
[2016-12-06] MEDS: DEXAMETHASONE SOD PHOS 4 MG/ML VIAL IV PUSH SCH (04:30)
[2016-12-06] MEDS: cloNIDine HCL 0.1 MG TAB PO PRN (07:24)
--- NOTE | 2016-12-06 08:07 | HHI.PR ---
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 her present Mr. Terry Bryson. 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 12/05: Doan Catheter removed and given Lactulose for Constipation. 12/06: Continue with Ventriculostomy drain. Seen in her bedroom in the presence of nurse Miss Garnica no complaint no nausea, vomit or diarrhea, has mild Hypertension. Objective Vital Signs Date Time Temp Pulse Resp B/P (MAP) Pulse Ox O2 Delivery O2 Flow Rate FiO2 12/06/16 06:00 58 12/06/16 04:00 98.3 58 20 159/70 (99) 96 12/06/16 04:00 59 12/06/16 02:00 58 12/06/16 00:00 56 12/06/16 00:00 98.3 54 18 159/66 (97) 95 12/05/16 22:00 59 12/05/16 20:00 98.3 58 23 153/67 (95) 96 12/05/16 20:00 72 12/05/16 19:00 Room Air 12/05/16 16:00 98.8 69 18 152/62 (92) 98 Arterial Line 12/05/16 12:00 98.6 63 19 136/64 (88) 98 12/05/16 09:18 98 21 I/O 12/05/16 12/05/16 12/05/16 12/06/16 12/06/16 12/06/16 07:00 15:00 23:00 07:00 15:00 23:00 Intake Total 1375 ml 1100 ml 2190 ml Output Total 1700 ml 1215 ml 6 ml Balance -325 ml 1100 ml 975 ml -6 ml Intake Oral 240 ml 960 ml IV Total 1135 ml 1100 ml 1230 ml Output Urine Total 1700 ml 1200 ml Drainage Total 15 ml 6 ml # Voids 2 # Bowel Movements 1 Result Diagram: 12/04/16 1710 12/05/16 0515 Imaging Last Impressions Head CT 12/05/16 0800 Signed Impressions: Service Date/Time: November 08:11 - CONCLUSION: 1. Interval placement of shunt catheter with the tip in the large cystic collection in the region of the posterior horn of the left lateral ventricle. 2. Mild interval decrease in the size of the cystic collection. Eliel Garcia MD Brain MRI 12/03/16 0000 Signed Impressions: Service Date/Time: Saturday, December 03, 2016 12:08 - CONCLUSION: Limited images as detailed above. Hadley Reyes Jr., MD Chest X-Ray 12/02/16 0901 Signed Impressions: Service Date/Time: Friday, December 02, 2016 09:15 - CONCLUSION: No acute disease. 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 Other Results Laboratory Tests Test 12/02/16 09:05 12/02/16 10:35 12/03/16 04:39 12/04/16 17:10 Platelet Estimate NORMAL Platelet Morphology Comment NORMAL Prothrombin Time 10.6 SEC Prothromb Time International Ratio 1.0 RATIO Activated Partial Thromboplast Time 28.6 SEC Serum Osmolality 251 MOSM/KG Blood Urea Nitrogen 10 MG/DL Creatinine 0.98 MG/DL Random Glucose 113 MG/DL Total Protein 7.9 GM/DL Albumin 3.7 GM/DL Calcium Level 9.1 MG/DL Magnesium Level 1.7 MG/DL Alkaline Phosphatase 102 U/L Aspartate Amino Transf (AST/SGOT) 26 U/L Alanine Aminotransferase (ALT/SGPT) 27 U/L Total Bilirubin 1.2 MG/DL Sodium Level 122 MEQ/L Potassium Level 3.7 MEQ/L Chloride Level 87 MEQ/L Carbon Dioxide Level 23.5 MEQ/L Total Creatine Kinase 222 U/L Creatine Kinase MB 2.6 NG/ML Creatine Kinase MB % 1.2 % Troponin I LESS THAN 0.02 NG/ML Urine Color YELLOW Urine Turbidity CLEAR Urine pH 6.0 Urine Specific Pierz 1.015 Urine Protein NEG mg/dL Urine Glucose (UA) NEG mg/dL Urine Ketones 15 mg/dL Urine Occult Blood SMALL Urine Nitrite NEG Urine Bilirubin NEG Urine Leukocyte Esterase NEG Urine RBC 0-3 /hpf Urine WBC 0-2 /hpf Urine Squamous Epithelial Cells 0-5 /hpf Urine Bacteria OCC /hpf Urine Mucus FEW /lpf Urine Oval Fat Bodies Microscopic Urinalysis Comment CULT NOT INDICATED Urine Osmolality 472 MOSM/KG Urine Random Sodium 68 MEQ/L Urine Random Potassium 54 MEQ/L Neutrophils (%) (Auto) 76.4 % Lymphocytes (%) (Auto) 17.6 % Monocytes (%) (Auto) 5.2 % Eosinophils (%) (Auto) 0.0 % Basophils (%) (Auto) 0.8 % Neutrophils # (Auto) 4.5 TH/MM3 Lymphocytes # (Auto) 1.0 TH/MM3 Monocytes # (Auto) 0.3 TH/MM3 Eosinophils # (Auto) 0.0 TH/MM3 Basophils # (Auto) 0.0 TH/MM3 CBC Comment DIFF FINAL Differential Comment White Blood Count 7.7 TH/MM3 Red Blood Count 4.11 MIL/MM3 Hemoglobin 11.7 GM/DL Hematocrit 34.6 % Mean Corpuscular Volume 84.3 FL Mean Corpuscular Hemoglobin 28.6 PG Mean Corpuscular Hemoglobin Concent 33.9 % Red Cell Distribution Width 14.1 % Platelet Count 273 TH/MM3 Mean Platelet Volume 7.2 FL Test 12/05/16 05:15 Blood Urea Nitrogen 11 MG/DL Creatinine 0.74 MG/DL Random Glucose 103 MG/DL Calcium Level 7.8 MG/DL Sodium Level 138 MEQ/L Potassium Level 4.3 MEQ/L Chloride Level 107 MEQ/L Carbon Dioxide Level 20.9 MEQ/L Anion Gap 10 MEQ/L Estimat Glomerular Filtration Rate 76 ML/MIN Protein Corrected Calcium 8.7 MG/DL Total Protein 5.6 GM/DL Objective Remarks GENERAL: Obesity. SKIN: Focused skin assessment warm/dry. HEAD: Dressed. drainage in place. EYES: Pupils equal and round. No scleral icterus. No injection or drainage. ENT: No nasal bleeding or discharge. Mucous membranes pink and moist. NECK: Trachea midline. No JVD. CARDIOVASCULAR: Regular rate and rhythm. No murmur appreciated. RESPIRATORY: No accessory muscle use. Clear to auscultation. Breath sounds equal bilaterally. GASTROINTESTINAL: Abdomen soft, non-tender, nondistended. Hepatic and splenic margins not palpable. MUSCULOSKELETAL: No obvious deformities. No clubbing. No cyanosis. No edema. NEUROLOGICAL: Awake and alert and oriented, No focal deficits. PSYCHIATRIC: Appropriate mood and affect; insight and judgment normal. Medications and IVs Current Medications Medications (Trade) Dose Ordered Sig/Froilan Route Start Time Stop Time Status Last Admin (Tylenol) 650 mg Q6H PRN PO 12/02/16 14:30 (Morphine Inj) 2 mg Q2H PRN IV 12/02/16 14:30 (Protonix) 40 mg DAILY PO 12/03/16 09:00 12/05/16 09:15 (Zofran Inj) 4 mg Q6H PRN IV 12/02/16 14:30 (Duoneb Neb) 1 ampule Q2HR NEB PRN INH 12/02/16 14:30 Miscellaneous Information 1 Q361D XX 12/02/16 14:30 (Chlorhexidine 2% Cloth) 3 pack Taper DAILY@04 TOP 12/03/16 04:00 11/29/17 03:59 12/06/16 04:30 (Chlorhexidine 2% Cloth) 3 pack UNSCH PRN TOP 12/02/16 14:30 (Tea-Colace) 1 tab BID PO 12/02/16 21:00 12/05/16 09:14 (Milk Of Magnesia Liq) 30 ml Q12H PRN PO 12/02/16 14:30 (Senokot) 17.2 mg Q12H PRN PO 12/02/16 14:30 (Dulcolax Supp) 10 mg DAILY PRN RECTAL 12/02/16 14:30 (Lactulose Liq) 30 ml DAILY PRN PO 12/02/16 14:30 (Decadron Inj) 4 mg Q6H IV PUSH 12/02/16 16:00 12/06/16 04:30 (NS Flush) 2 ml UNSCH PRN IV FLUSH 12/02/16 16:45 (NS Flush) 2 ml BID IV FLUSH 12/02/16 21:00 12/05/16 21:23 (Keppra) 500 mg Q12H PO 12/02/16 21:00 12/05/16 21:23 (Ativan Inj) 1 mg Q1H PRN IVP 12/02/16 16:45 (Protonix) 40 mg DAILY PO 12/03/16 09:00 (Percocet 5-325 Mg) 1 tab Q4H PRN PO 12/02/16 16:45 12/05/16 15:42 (Percocet 5-325 Mg) 2 tab Q4H PRN PO 12/02/16 16:45 12/04/16 22:14 (Trandate Inj) 10 mg Q1H PRN IV 12/02/16 16:45 12/06/16 06:29 (Catapres) 0.1 mg Q6H PRN PO 12/02/16 16:45 12/06/16 07:24 (Albuterol Neb) 2.5 mg Q4HR NEB PRN NEB 12/02/16 16:45 (Milk Of Magnesia Liq) 30 ml DAILY PRN PO 12/04/16 16:45 (Mag-Al Plus Susp Liq) 30 ml Q6H PRN PO 12/04/16 16:45 Calcium Gluconate 1 gm/Sodium Chloride 110 ml @ 110 mls/hr UNSCH PRN IV 12/04/16 16:45 Potassium Chloride 100 ml @ 50 mls/hr UNSCH PRN IV 12/04/16 16:45 Magnesium Sulfate 2 gm/Sodium Chloride 104 ml @ 100 mls/hr UNSCH PRN IV 12/04/16 16:45 Nicardipine HCl 25 mg/Sodium Chloride 260 ml @ 52 mls/hr TITRATE PRN IV 12/04/16 17:00 A/P Assessment and Plan 1. Enlarged occipital horn of left lateral ventricle with cerebral edema, with Speech Disturbance, Neurosurgery following, may require [employer] Shunt/Ventriculostomy, She underwent a head CT Large left Occipital Cyst with extension to the lateral ventricle and mass effect on the surrounding Occipital Lobe, the Cyst does not appear to communicate with the ventricle, although Ordered MRI of the Brain confirm the Left Occipital Cyst 9 x 4 cms 12/04: Status post Left Occipital mac hole endoscopic cerebral/intraventricular cyst resection, ventriculostomy placement, stereotactic intraoperative brain lab navigation by Doctor Vishnu Ovalle, 12/04/16. stable improving condition. 2. Obesity strongly recommended diet and exercise as outpatient. 3. Hypertension started low dose of Amlodipine. 4. Constipation improved. Prophylaxis: PPI/SCDs. No heparin or Lovenox till cleared by neurosurgery. Discussed with Patient with nurse miss Garnica. in the room., all questions answered to the best of my abilities. Discharge Planning once cleared by Specialists. Ben Lockwood MD Dec 06, 2016 08:07
[2016-12-06] MEDS: PANTOPRAZOLE SOD 40 MG DELAYED RELEASE TAB PO SCH ×2 (08:21)
[2016-12-06] MEDS: DOCUSATE SODIUM 50 MG/SENNA 8.6 MG TAB PO SCH ×2 (08:21→20:45)
[2016-12-06] MEDS: SODIUM CHLORIDE 0.9% FLUSH 10 ML FLUSH IV FLUSH SCH ×2 (08:21→20:45)
[2016-12-06] MEDS: levETIRAcetam 500 MG TAB PO SCH ×2 (08:21→20:45)
[2016-12-06] MEDS: amLODIPine BESYLATE 5 MG TAB PO SCH (10:00)
--- NOTE | 2016-12-06 10:29 | HHI.NSPN ---
(David Davison) History Chief Complaint: Mild expressive aphasia. (David Davison) Interval History A 76-year-old female who presented to [facility] Emergency Room with complaints of expressive aphasia and confusion which started yesterday and has persisted. She also relates a mild frontal headache as well as nausea but no vomiting. She is unsure whether she has had any acute change in her vision but has noted some decline in the periphery in the right side which is chronic. Denies any numbness or paresthesias in the upper or lower extremities and no other particular symptoms that she cannot relate but again her speech is severely with expressive aphasia and cannot relate much of a history to me. Her granddaughter and are with her who have been relating some this history. 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 This cyst measures 7.6 cm in AP dimension, 5.8 cm in craniocaudal dimension and 3.8 cm in lateral dimension. There is mass effect in the surrounding left hemisphere. The cyst does not appear to communicate with the lateral ventricles as the ventricles are not dilated. No discrete enhancement is noted with contrast. The patient was transferred to the [facility] intensive care unit for further management. She is also hyponatremic with sodium of 122. The family relates that a year ago she had similar symptoms with the transient speech arrest and was informed that she may be dehydrated and with IV fluids her symptoms improved and she was sent home, although they do not recall having an imaging study of her brain done. They seem to relate to me that over 10 years ago she was informed that she had a cyst in the brain when she was in [place] but are unclear of this history. 12/03/16: Pt denies headache. Has mild difficulty with expressive aphasia. Denies nausea or vomiting. No muscle weakness. 12/05/16: Pt s/p left occipital mac hole endoscopic cerebral/intraventricular cyst resection; ventriculostomy placement on 12/04/16. Pt has mild intermittent frontal headache. No nausea or vomiting. No paresthesias in face or extremities. 12/06/16: Pt awake and alert. Sitting up in chair. Mild intermittent frontal headache. No nausea or vomiting. Following commands well. (David Davison) Review of Systems General: Negative for: fever, chills, insomnia Respiratory: Negative for: shortness of breath, cough, sputum Cardiovascular: Negative for: chest pain Gastrointestinal: Negative for: nausea, vomitting, diarrhea, constipation ( David Davison) Exam Results Vital Signs Date Time Temp Pulse Resp B/P (MAP) Pulse Ox O2 Delivery O2 Flow Rate FiO2 12/06/16 10:00 57 12/06/16 08:00 97.6 16 161/71 (101) 97 12/06/16 07:00 Room Air 12/05/16 09:18 21 12/05/16 07:00 1.00 Intake and Output 12/06/16 12/06/16 12/07/16 08:00 16:00 00:00 Output Total 6 ml Balance -6 ml (David Davison) Physical Examination General: Resting comfortably sitting up in bed. Resp: CTA bilaterally Heart: NSR no murmurs Abd: Soft positive bs Skin: No cyanosis or erythema. Head bandage dry. Muscle: Moves all 4 extremities symmetrically. Neuro: Pt awake and alert. Pupils equal 3mm bilaterally reactive bilaterally. Speech with very mild expressive aphasia. Follows commands well. Ventriculostomy drain at 20cm H20. (David Davison) Lab, Micro, Other Results Last Impressions Head CT 12/05/16 0800 Signed Impressions: Service Date/Time: November 08:11 - CONCLUSION: 1. Interval placement of shunt catheter with the tip in the large cystic collection in the region of the posterior horn of the left lateral ventricle. 2. Mild interval decrease in the size of the cystic collection. Eliel Garcia MD Brain MRI 12/03/16 0000 Signed Impressions: Service Date/Time: Saturday, December 03, 2016 12:08 - CONCLUSION: Limited images as detailed above. Hadley Reyes Jr., MD Chest X-Ray 12/02/16 0901 Signed Impressions: Service Date/Time: Friday, December 02, 2016 09:15 - CONCLUSION: No acute disease. Mendez Dickerson MD FACR (David Davison) Medical Decision Making Impression and Plan A: Large left occipital cyst with extension to lateral ventricle and mass effect on the surrounding occipital lobe. The cyst does not appear to communicate with the ventricle, although is involving the occipital horn and body of the lateral ventricle.s/p Left occipital mac hole endoscopic cerebral/intraventricular cyst resection; ventriculostomy placement on 12/05. 2. 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 3. Hypertension. PLAN Continue to monitor neuro exam Discontinue ventriculostomy drain. Continue with PT and Speech therapy. The ventriculostomy site was cleaned with Betadine. Lidocaine 2% with Epi was used for local anesthesia, 1cc used. Ventriculostomy drain removed. 2 jessica placed. No CSF drainage. Sterile technique used during procedure. (David Davison) Attending Statement The exam, history, and the medical decision-making described in the above note were completed with the assistance of the mid-level provider. I reviewed and agree with the findings presented. I attest that I had a [id number] encounter with the patient on the same day, and personally performed and documented my assessment and findings in the medical record. Doing well from neurologic standpoint. Discontinue ventriculostomy and transferred to floor. Anticipate discharge tomorrow if stable. Follow-up in the office in 5 days for occipital staple removal and wound check. (Vishnu Ovalle MD) David Davison Dec 06, 2016 10:29 Vishnu Ovalle MD Dec 06, 2016 12:30
[2016-12-06] MEDS ORDERED: LIDOCAINE 2%/EPINEPHrine 1:100,000 30ML MDV INFIL ONE (11:00)
[2016-12-06] MEDS ORDERED: LIDOCAINE 2%/EPINEPHrine 1:100,000 50ML MDV INFIL ONE (11:15)
[2016-12-06] MEDS ORDERED: AMLO5 PO (11:30)
[2016-12-06] MEDS ORDERED: HYDR-3533 PO (11:30)
[2016-12-07] VITALS: BP 114/66; PULSE 106; RESP 23; TEMP 98.3; O2SAT 100
[2016-12-07 02:00] VITALS: PULSE 62
[2016-12-07 04:00] VITALS: BP 140/66; PULSE 60; RESP 29; TEMP 98.2; O2SAT 98
[2016-12-07] MEDS: CHLORHEXIDINE GLUCONATE 2 % 1 PACK (2 CLOTHS) TOP SCH (04:00)
[2016-12-07 06:00] VITALS: PULSE 58
[2016-12-07 08:00] VITALS: BP 135/62; PULSE 61; PULSE 68; RESP 17; TEMP 97.9; O2SAT 98
[2016-12-07] MEDS: SODIUM CHLORIDE 0.9% FLUSH 10 ML FLUSH IV FLUSH SCH (09:00)
[2016-12-07] MEDS: PANTOPRAZOLE SOD 40 MG DELAYED RELEASE TAB PO SCH ×2 (09:00→10:05)
[2016-12-07 10:00] VITALS: PULSE 82
[2016-12-07] MEDS: levETIRAcetam 500 MG TAB PO SCH (10:05)
[2016-12-07] MEDS: DOCUSATE SODIUM 50 MG/SENNA 8.6 MG TAB PO SCH (10:05)
[2016-12-07] MEDS: amLODIPine BESYLATE 5 MG TAB PO SCH (10:05)
--- NOTE | 2016-12-07 10:52 | HHI.PR ---
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 her present Mr. Terry Bryson. 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 12/05: Doan Catheter removed and given Lactulose for Constipation. 12/06: Continue with Ventriculostomy drain. Seen in her bedroom in the presence of nurse Miss Garnica no complaint no nausea, vomit or diarrhea, has mild Hypertension. 12/07: Seen in her bedroom stable already placed orders for discharge by Neurosurgery, no nausea, vomit or diarrhea seen in the presence of her Daughter Miss Yasmin Bryson. and nurse. Objective Vital Signs Date Time Temp Pulse Resp B/P (MAP) Pulse Ox O2 Delivery O2 Flow Rate FiO2 12/07/16 10:00 82 12/07/16 08:00 97.9 68 17 135/62 (86) 98 12/07/16 08:00 61 12/07/16 07:00 97 Room Air 12/07/16 06:00 58 12/07/16 04:00 60 12/07/16 04:00 98.2 60 29 140/66 (90) 98 12/07/16 02:00 62 12/07/16 00:00 106 12/07/16 00:00 98.3 106 23 114/66 (82) 100 12/06/16 22:00 64 12/06/16 20:00 98.2 64 22 135/65 (88) 98 12/06/16 20:00 65 12/06/16 19:00 100 Room Air 12/06/16 18:00 62 12/06/16 16:00 63 12/06/16 16:00 98.2 63 14 120/60 (80) 98 12/06/16 14:00 69 12/06/16 12:00 66 12/06/16 12:00 98.4 66 20 110/57 (74) 98 I/O 12/06/16 12/06/16 12/06/16 12/07/16 12/07/16 12/07/16 07:00 15:00 23:00 07:00 15:00 23:00 Intake Total 1440 ml 480 ml Output Total 6 ml 20 ml Balance -6 ml 1420 ml 480 ml Intake Oral 1440 ml 480 ml Drainage Total 6 ml 20 ml # Voids 2 2 2 # Bowel Movements 1 Result Diagram: 12/04/16 1710 12/05/16 0515 Imaging Last Impressions Head CT 12/05/16 0800 Signed Impressions: Service Date/Time: November 08:11 - CONCLUSION: 1. Interval placement of shunt catheter with the tip in the large cystic collection in the region of the posterior horn of the left lateral ventricle. 2. Mild interval decrease in the size of the cystic collection. Eliel Garcia MD Brain MRI 12/03/16 0000 Signed Impressions: Service Date/Time: Saturday, December 03, 2016 12:08 - CONCLUSION: Limited images as detailed above. Hadley Reyes Jr., MD Chest X-Ray 12/02/16 0901 Signed Impressions: Service Date/Time: Friday, December 02, 2016 09:15 - CONCLUSION: No acute disease. 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 Other Results Laboratory Tests Test 12/02/16 09:05 12/02/16 10:35 12/03/16 04:39 12/04/16 17:10 Platelet Estimate NORMAL Platelet Morphology Comment NORMAL Prothrombin Time 10.6 SEC Prothromb Time International Ratio 1.0 RATIO Activated Partial Thromboplast Time 28.6 SEC Serum Osmolality 251 MOSM/KG Blood Urea Nitrogen 10 MG/DL Creatinine 0.98 MG/DL Random Glucose 113 MG/DL Total Protein 7.9 GM/DL Albumin 3.7 GM/DL Calcium Level 9.1 MG/DL Magnesium Level 1.7 MG/DL Alkaline Phosphatase 102 U/L Aspartate Amino Transf (AST/SGOT) 26 U/L Alanine Aminotransferase (ALT/SGPT) 27 U/L Total Bilirubin 1.2 MG/DL Sodium Level 122 MEQ/L Potassium Level 3.7 MEQ/L Chloride Level 87 MEQ/L Carbon Dioxide Level 23.5 MEQ/L Total Creatine Kinase 222 U/L Creatine Kinase MB 2.6 NG/ML Creatine Kinase MB % 1.2 % Troponin I LESS THAN 0.02 NG/ML Urine Color YELLOW Urine Turbidity CLEAR Urine pH 6.0 Urine Specific [place] 1.015 Urine Protein NEG mg/dL Urine Glucose (UA) NEG mg/dL Urine Ketones 15 mg/dL Urine Occult Blood SMALL Urine Nitrite NEG Urine Bilirubin NEG Urine Leukocyte Esterase NEG Urine RBC 0-3 /hpf Urine WBC 0-2 /hpf Urine Squamous Epithelial Cells 0-5 /hpf Urine Bacteria OCC /hpf Urine Mucus FEW /lpf Urine Oval Fat Bodies Microscopic Urinalysis Comment CULT NOT INDICATED Urine Osmolality 472 MOSM/KG Urine Random Sodium 68 MEQ/L Urine Random Potassium 54 MEQ/L Neutrophils (%) (Auto) 76.4 % Lymphocytes (%) (Auto) 17.6 % Monocytes (%) (Auto) 5.2 % Eosinophils (%) (Auto) 0.0 % Basophils (%) (Auto) 0.8 % Neutrophils # (Auto) 4.5 TH/MM3 Lymphocytes # (Auto) 1.0 TH/MM3 Monocytes # (Auto) 0.3 TH/MM3 Eosinophils # (Auto) 0.0 TH/MM3 Basophils # (Auto) 0.0 TH/MM3 CBC Comment DIFF FINAL Differential Comment White Blood Count 7.7 TH/MM3 Red Blood Count 4.11 MIL/MM3 Hemoglobin 11.7 GM/DL Hematocrit 34.6 % Mean Corpuscular Volume 84.3 FL Mean Corpuscular Hemoglobin 28.6 PG Mean Corpuscular Hemoglobin Concent 33.9 % Red Cell Distribution Width 14.1 % Platelet Count 273 TH/MM3 Mean Platelet Volume 7.2 FL Test 12/05/16 05:15 Blood Urea Nitrogen 11 MG/DL Creatinine 0.74 MG/DL Random Glucose 103 MG/DL Calcium Level 7.8 MG/DL Sodium Level 138 MEQ/L Potassium Level 4.3 MEQ/L Chloride Level 107 MEQ/L Carbon Dioxide Level 20.9 MEQ/L Anion Gap 10 MEQ/L Estimat Glomerular Filtration Rate 76 ML/MIN Protein Corrected Calcium 8.7 MG/DL Total Protein 5.6 GM/DL Objective Remarks GENERAL: Obesity. SKIN: Focused skin assessment warm/dry. HEAD: Dressed. drainage in place. EYES: Pupils equal and round. No scleral icterus. No injection or drainage. ENT: No nasal bleeding or discharge. Mucous membranes pink and moist. NECK: Trachea midline. No JVD. CARDIOVASCULAR: Regular rate and rhythm. No murmur appreciated. RESPIRATORY: No accessory muscle use. Clear to auscultation. Breath sounds equal bilaterally. GASTROINTESTINAL: Abdomen soft, non-tender, nondistended. Hepatic and splenic margins not palpable. MUSCULOSKELETAL: No obvious deformities. No clubbing. No cyanosis. No edema. NEUROLOGICAL: Awake and alert and oriented, No focal deficits. PSYCHIATRIC: Appropriate mood and affect; insight and judgment normal. Medications and IVs Current Medications Medications (Trade) Dose Ordered Sig/Froilan Route Start Time Stop Time Status Last Admin (Tylenol) 650 mg Q6H PRN PO 12/02/16 14:30 (Morphine Inj) 2 mg Q2H PRN IV 12/02/16 14:30 (Protonix) 40 mg DAILY PO 12/03/16 09:00 12/07/16 10:05 (Zofran Inj) 4 mg Q6H PRN IV 12/02/16 14:30 (Duoneb Neb) 1 ampule Q2HR NEB PRN INH 12/02/16 14:30 Miscellaneous Information 1 Q361D XX 12/02/16 14:30 (Chlorhexidine 2% Cloth) 3 pack Taper DAILY@04 TOP 12/03/16 04:00 11/29/17 03:59 12/06/16 04:30 (Chlorhexidine 2% Cloth) 3 pack UNSCH PRN TOP 12/02/16 14:30 (Tea-Colace) 1 tab BID PO 12/02/16 21:00 12/07/16 10:05 (Milk Of Magnesia Liq) 30 ml Q12H PRN PO 12/02/16 14:30 (Senokot) 17.2 mg Q12H PRN PO 12/02/16 14:30 (Dulcolax Supp) 10 mg DAILY PRN RECTAL 12/02/16 14:30 (Lactulose Liq) 30 ml DAILY PRN PO 12/02/16 14:30 (NS Flush) 2 ml UNSCH PRN IV FLUSH 12/02/16 16:45 (NS Flush) 2 ml BID IV FLUSH 12/02/16 21:00 12/07/16 09:00 (Keppra) 500 mg Q12H PO 12/02/16 21:00 12/07/16 10:05 (Ativan Inj) 1 mg Q1H PRN IVP 12/02/16 16:45 (Protonix) 40 mg DAILY PO 12/03/16 09:00 (Percocet 5-325 Mg) 1 tab Q4H PRN PO 12/02/16 16:45 12/05/16 15:42 (Percocet 5-325 Mg) 2 tab Q4H PRN PO 12/02/16 16:45 12/04/16 22:14 (Trandate Inj) 10 mg Q1H PRN IV 12/02/16 16:45 12/06/16 06:29 (Catapres) 0.1 mg Q6H PRN PO 12/02/16 16:45 12/06/16 07:24 (Albuterol Neb) 2.5 mg Q4HR NEB PRN NEB 12/02/16 16:45 (Milk Of Magnesia Liq) 30 ml DAILY PRN PO 12/04/16 16:45 (Mag-Al Plus Susp Liq) 30 ml Q6H PRN PO 12/04/16 16:45 Calcium Gluconate 1 gm/Sodium Chloride 110 ml @ 110 mls/hr UNSCH PRN IV 12/04/16 16:45 Potassium Chloride 100 ml @ 50 mls/hr UNSCH PRN IV 12/04/16 16:45 Magnesium Sulfate 2 gm/Sodium Chloride 104 ml @ 100 mls/hr UNSCH PRN IV 12/04/16 16:45 Nicardipine HCl 25 mg/Sodium Chloride 260 ml @ 52 mls/hr TITRATE PRN IV 12/04/16 17:00 (Norvasc) 5 mg DAILY PO 12/06/16 10:00 12/07/16 10:05 A/P Assessment and Plan 1. Enlarged occipital horn of left lateral ventricle with cerebral edema, with Speech Disturbance, Neurosurgery following, may require [employer] Shunt/Ventriculostomy, She underwent a head CT Large left Occipital Cyst with extension to the lateral ventricle and mass effect on the surrounding Occipital Lobe, the Cyst does not appear to communicate with the ventricle, although Ordered MRI of the Brain confirm the Left Occipital Cyst 9 x 4 cms 12/04: Status post Left Occipital mac hole endoscopic cerebral/intraventricular cyst resection, ventriculostomy placement, stereotactic intraoperative brain lab navigation by Doctor Vishnu Ovalle, 12/04/16. stable improving condition. 2. Obesity strongly recommended diet and exercise as outpatient. 3. Hypertension better control. 4. Constipation improved. Prophylaxis: PPI/SCDs. No heparin or Lovenox till cleared by neurosurgery. Discussed with Patient and her Daughter Miss Yasmin Bryson. all questions answered to the best of my abilities. Discharge Planning Discharged already by Neurosurgery. Ben Lockwood MD Dec 07, 2016 10:52
--- NOTE | 2016-12-07 12:51 | HHI.DS ---
Discharge Summary Admission Date Dec 02, 2016 at 12:44 Discharge Date: Dec 07, 2016 Admitting Diagnosis Cerebral Edema, Brain Cyst. 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 Brief History - From Admission History of Present Illness HPI 76-year-old female who was brought to the ER with a history of headache and difficulty with finding words with started on 12/01 that is yesterday. On evaluation in the ER she was noted to have word finding difficulty. She underwent a head CT which revealed enlarged left occipital horn of lateral ventricle. Neurosurgery was consulted by Dr. Daniels and Dr. Ovalle requested patient be transferred to [facility]. Patient was given Decadron 10 mg IV at [facility]. She also noted to be hyponatremic with sodium 122. I evaluated the patient immediately on her arrival to [facility]. At that time she was laying in bed in no acute distress. She continued to have difficulties with her speech and appeared to have expressive aphasia. She did say that she had a headache previously. Denied any nausea vomiting or visual disturbance. Denied any fever or chills. Denied any shortness of breath or abdominal pain. History PFSH Past Medical History Arthritis: Yes Cancer: No Cardiovascular Problems: No Diabetes: No Diminished Hearing: No Endocrine: No Genitourinary: No Hepatitis: No Hiatal Hernia: No Hypertension: Yes Immune Disorder: No Musculoskeletal: Yes (KNEES AND BACK ARTHRITIS) Neurologic: No Psychiatric: No Reproductive: No Respiratory: No Thyroid Disease: No Menopausal: Yes Past Surgical History Abdominal Surgery: No AICD: No Body Medical Devices: NA Cardiac Surgery: No Ear Surgery: No Endocrine Surgery: No Eye Surgery: No Genitourinary Surgery: No Gynecologic Surgery: Yes (ECTOPIC ) Joint Replacement: Yes (R KNEE) Oral Surgery: No Pacemaker: No Thoracic Surgery: No Other Surgery: Yes Social History Alcohol Use: No Tobacco Use: No (quit 25 years ago) Substance Use: No Allergies-Medications Allergies-Medications (Allergen,Severity, Reaction): Coded Allergies: No Known Allergies (Unverified , 12/02/16) Reported Meds & Prescriptions Reported Meds & Active Scripts Active Reported Potassium Chloride ER (Potassium Chloride) 10 Meq Cap 10 Meq PO DAILY Losartan-Hydrochlorothiazide 100-25 Mg Tab 1 Tab PO DAILY ROS Review of Systems Except as stated in HPI: all other systems reviewed are Neg CBC/BMP: 12/04/16 1710 12/05/16 0515 Significant Findings Laboratory Tests Test 12/04/16 17:10 12/05/16 05:15 Hematocrit 34.6 % (35.0-46.0) Random Glucose 154 MG/DL (74-106) Calcium Level 8.0 MG/DL (8.5-10.1) 7.8 MG/DL (8.5-10.1) Estimat Glomerular Filtration Rate 76 ML/MIN (>89) 76 ML/MIN (>89) Carbon Dioxide Level 20.9 MEQ/L (21.0-32.0) Total Protein 5.6 GM/DL (6.4-8.2) Imaging Last Impressions Head CT 12/05/16 0800 Signed Impressions: Service Date/Time: November 08:11 - CONCLUSION: 1. Interval placement of shunt catheter with the tip in the large cystic collection in the region of the posterior horn of the left lateral ventricle. 2. Mild interval decrease in the size of the cystic collection. Eliel Garcia MD Brain MRI 12/03/16 0000 Signed Impressions: Service Date/Time: Saturday, December 03, 2016 12:08 - CONCLUSION: Limited images as detailed above. Hadley Reyes Jr., MD Chest X-Ray 12/02/16 0901 Signed Impressions: Service Date/Time: Friday, December 02, 2016 09:15 - CONCLUSION: No acute disease. Mendez Dickerson MD FACR PE at Discharge GENERAL: Obesity. SKIN: Focused skin assessment warm/dry. HEAD: Dressed. drainage in place. EYES: Pupils equal and round. No scleral icterus. No injection or drainage. ENT: No nasal bleeding or discharge. Mucous membranes pink and moist. NECK: Trachea midline. No JVD. CARDIOVASCULAR: Regular rate and rhythm. No murmur appreciated. RESPIRATORY: No accessory muscle use. Clear to auscultation. Breath sounds equal bilaterally. GASTROINTESTINAL: Abdomen soft, non-tender, nondistended. Hepatic and splenic margins not palpable. MUSCULOSKELETAL: No obvious deformities. No clubbing. No cyanosis. No edema. NEUROLOGICAL: Awake and alert and oriented, No focal deficits. PSYCHIATRIC: Appropriate mood and affect; insight and judgment normal. Hospital Course This is a pleasant 76 y/o Female who was brought in to ER with history of headache and difficulty with finding words, She underwent a head CT Large left Occipital Cyst with extension to the lateral ventricle and mass effect on the surrounding Occipital Lobe, the Cyst does not appear to communicate with the ventricle, although is involving the Occipital Horn and body of the lateral ventricle, MRI ordered for Intraoperative Navigation Patient seen in her bedroom, status post MRI of the Brain confirm the Left Occipital Cyst 9 x 4 cms is scheduled for Left Occipital Mac Hole Endoscopic Cerebral/Intraventricular Cyst resection. her present Mr. Terry Bryson. 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 12/05: Doan Catheter removed and given Lactulose for Constipation. 12/06: Continue with Ventriculostomy drain. Seen in her bedroom in the presence of nurse Miss Garnica no complaint no nausea, vomit or diarrhea, has mild Hypertension. 12/07: Seen in her bedroom stable already placed orders for discharge by Neurosurgery, no nausea, vomit or diarrhea seen in the presence of her Daughter Miss Yasmin Bryson. and nurse. Assessment and Plan 1. 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 stable improving condition. 2. Obesity strongly recommended diet and exercise as outpatient. 3. Hypertension better control. 4. Constipation improved. Prophylaxis: PPI/SCDs. No heparin or Lovenox till cleared by neurosurgery. Discussed with Patient and her Daughter Miss Yasmin Bryson. all questions answered to the best of my abilities. Discharge Planning Discharged already by Neurosurgery. Pt Condition on Discharge: Good Discharge Disposition: Discharge Home Discharge Time: <= 30 minutes Discharge Instructions DIET: Follow Instructions for: As Tolerated, No Restrictions Activities you can perform: Regular-No Restrictions Activities to Avoid: Strenuous Activity, Driving Ben Lockwood MD Dec 07, 2016 12:51
== END 2016-12-07 11:40 | disposition home or self-care (01) | DRG 25 ==
LOC: PHED 08:52 → PHEDA 12:44 → N03B 14:35
PROVIDERS: ADMIT Internal Medicine; ATTEND Internal Medicine
PROC: 009600Z Drainage of Cerebral Ventricle with Drainage Device, Open Approach (ICD-10-PCS; 2016-12-04)
PROC: 00B60ZZ Excision of Cerebral Ventricle, Open Approach (ICD-10-PCS; principal; 2016-12-04 14:09)
DX: G93.0 Cerebral cysts (principal); G93.6 Cerebral edema; E87.1 Hypo-osmolality and hyponatremia; R47.01 Aphasia; I10 Essential (primary) hypertension; K59.00 Constipation, unspecified; Z96.651 Presence of right artificial knee joint; Z87.891 Personal history of nicotine dependence; M19.90 Unspecified osteoarthritis, unspecified site
CPT/HCPCS: 51702; 70450; 70551; 70553; 71010; 76937; 80048; 80053; 81001; 82550; 82552; 83735; 83930; 83935; 84133; 84155; 84295; 84300; 84484; 85025; 85027; 85610; 85730; 88304; 88307; 93005; 94003; 94150; 96374; A9579; C1713; J0690; J1100; J2250; J2370; J3010; J3370; J3480